=== PATIENT | male | born 1950 | race Two or more races ===

== ENCOUNTER 2024-10-12 06:07 | Inpatient (IN) | payer MEDICARE ==
[2024-10-06 10:01] LABS: Urine Bacteria None Seen /hpf (None Seen)
[2024-10-06 10:21] LABS: Basophils # (auto) 0.1 10 ^3/uL (0-0.2); Eosinophils # (auto) 0.1 10 ^3/uL (0-0.8); Eosinophils % (auto) 1.8 % (0.0-7.0); Hematocrit 42.4 % (41.0-53.0); Hemoglobin 14.2 g/dL (13.5-17.5); Lymphocytes # (auto) 1.7 10 ^3/uL (0.4-5.4); Lymphocytes % (auto) 30.3 % (10.0-50.0); Mean Corpuscular Hemoglobin 33.9 pg (28.0-32.0); Mean Corpuscular Hgb Conc. 33.5 g/dL (32.0-36.0); Mean Corpuscular Volume 101.3 fL (80.0-100.0); Monocytes # (auto) 0.6 10 ^3/uL (0-1.3); Monocytes % (auto) 11.7 % (0.0-12.0); Neutrophils % (auto) 55.2 % (37.0-80.0); Platelet Count (auto) 200 10^3/uL (140-450); Red Blood Cells 4.19 10^6/uL (4.5-5.90); Red Cell Distribution Width 13.3 % (11.8-14.3); White Blood Cell 5.5 10^3/uL (4.4-10.8)
[2024-10-06 10:32] LABS: INR 0.97 (0.9-1.15); Partial Thromboplastin Time 26.5 SEC (24.5-34.5); Prothrombin Time 10.3 sec (9.3-11.8)
[2024-10-06 10:39] LABS: Urine Blood Negative /uL (Negative); Urine Clarity Clear (Clear); Urine Color Light-Yellow (Yellow); Urine Protein, UAD 1+ (Negative); Urine Specific Gravity 1.011 (1.001-1.035); Urine Squamous Epithelial Cell None Seen /hpf (<5); Urine Urobilinogen Normal (Negative); Urine WBC < 1 /HPF (0-3)
[2024-10-06 10:50] LABS: Alanine Aminotransferase 38 U/L (7-40); Alkaline Phosphatase 83 U/L (46-116); Anion Gap 9 (5-15); BUN/Creatinine Ratio 12.4 (10.0-20.0); Blood Urea Nitrogen 12 mg/dL (9-23); Carbon Dioxide 27 mmol/L (20-31); Chloride 101 mmol/L (98-107); Glucose 100 mg/dL (74-106); Potassium 4.4 mmol/L (3.5-5.1); Sodium 137 mmol/L (136-145)
[2024-10-06 10:51] LABS: Aspartate Aminotransferase 34 U/L (13-40)
[2024-10-06 10:58] LABS: Albumin 5.1 g/dL (3.2-4.8); Bilirubin, Total 1.9 mg/dL (0.2-1.0); Calcium 10.8 mg/dL (8.7-10.4)
[2024-10-06 11:59] LABS: Total Protein 7.4 g/dL (5.7-8.2)
[~2024-10-12] VITALS: Ht 177.8 cm; Wt 88.3 kg
[~2024-10-12 06:07] MED LIST: ACET30TA15 PO; ALLO100T PO; AML5T PO; ASPI-543 PO; ATOR40TA52 PO; CHOL200029 PO; FLUT50SP; GABA-1250 PO; HYOS0.1289 PO; IPRAAER6 IN; METO25TA93 PO; VALS320T PO
[2024-10-12] MEDS ORDERED: fentaNYL CITRATE 5 ML ONE (06:52)
[2024-10-12] MEDS ORDERED: fentaNYL CITRATE 100 MCG/2 ML VL ONE ×2 (06:52→09:57)
[2024-10-12] MEDS ORDERED: PROPOFOL 10 MG/ML 20 ML IV ONE ×2 (06:53→09:54)
[2024-10-12] MEDS ORDERED: LIDOCAINE 1% INJ PF 5ML AMP ONE (07:00)
--- NOTE | 2024-10-12 08:09 | DVHHP2 ---
Admitting Diagnosis: lumbar spinal stenosis with severe neurogenic claudication History of Present Illness Home Meds Reported Medications Aspirin (Aspir-Low) 81 Mg Tab, 81 MG PO DAILY for 30 Days, MG 10/09/24 Metoprolol Succinate (Metoprolol Succinate Er) 25 Mg Tab, 1 TAB PO DAILY, #30 TAB 5 Refills 10/09/24 Amlodipine Besylate (NORVASC TABLET) 5 Mg Tb, 1 TAB PO QPM, #30 TAB 5 Refills 10/09/24 Atorvastatin Calcium (ATORVASTATIN CALCIUM) 40 Mg Tab, 1 TAB PO QPM, #30 TAB 5 Refills 10/09/24 Acetaminophen W/ Codeine (Codeine/Acetaminophen) 1 Tab Tab, 1 TAB PO EVERY 72 HOURS PRN for ARTHRITIS PAIN, TAB 05/27/22 Hyoscyamine Sulfate (HYOSCYAMINE SULFATE ODT) 0.125 Mg Tab, 0.125 MG PO DAILYP PRN for DIVERTICULITIS ABD. PAIN, TAB 05/27/22 Ipratropium-Albuterol (COMBIVENT RESPIMAT) Respimat Aer, 1 IN PRN for SOB, AER 05/27/22 Fluticasone Propionate (Nasal) (Fluticasone Propionate) 50 Mcg/Act Spr, 50 MCG NA DAILYP PRN for ASTHMA, SPR 05/27/22 Gabapentin (Gabapentin) 300 Mg Cap, 300 MG PO DAILY for NEUROPATHY, MG 05/27/22 Cholecalciferol (VITAMIN D3) 2,000 Unit Chw, 2000 UNIT PO DAILY for SUPPLEMENT, TAB.CHEW 05/27/22 Allopurinol (Allopurinol) 100 Mg Tab, 100 MG PO DAILY for GOUT, MG 05/27/22 Valsartan (Diovan) 320 Mg Tab, 1 TAB PO DAILY for HTN, #90 TAB 1 Refill 05/27/22 Discontinued Reported Medications Atorvastatin Calcium (ATORVASTATIN CALCIUM) 10 Mg Tab, 1 TAB PO DAILY for HYPERLIPIDEMIA, #30 TAB 5 Refills 05/27/22 Timing/Duration of Back Pain: Getting worse Quality of Back Pain: Dullness, Fullness, Sharpness Back Pain Location: Lumbar spine Back Pain Radiation: Thigh area Method of Injury/Prior Factors: Unknown Review of Systems Constitutional: No symptom reported Ears, Nose, & Throat: No symptom reported Eyes: No symptom reported Pulmonary/Respiratory: No symptom reported Cardiovascular: No symptom reported Gastrointestinal: No symptom reported Genitourinary: No symptom reported Musculoskeletal: Leg pain, Foot pain, Muscle pain, Muscle atrophy Skin: No symptom reported Psychiatric: No symptom reported Endocrine: No symptom reported Hemotologic/Lymphatic: No symptom reported H&P Exam Vital Signs Vital Signs Date Time Temp Pulse Resp B/P (MAP) Pulse Ox O2 Delivery O2 Flow Rate FiO2 10/12/24 06:17 98.3 65 18 150/87 (108) 95 98.3 General Appeara: Well developed, Well nourished, Normal Appearance Head Exam: Normal inspection Neck Exam: Normal inspection, Non-tender, Normal alignment Eye Exam: bilateral eye Normal inspection, bilateral eye PERRL, bilateral eye EOMI Ear Exam: bilateral ear Auricle normal, bilateral ear Canal normal, bilateral ear TM normal Nasal Exam: Normal inspection Mouth: Normal Inspection Pulmonary/Respiratory: Normal inspection, Normal breath sounds, Chest non- tender, Lungs clear Cardiovascular/Chest: Normal inspection, Regular rate, Normal Rhythm Abdominal Exam: Normal bowel sounds, Soft, No tenderness, No hepatospenomegaly, No masses Rectal Exam: Deferred Back Exam: Muscle spasm, Vertebral tenderness Pelvic Exam: Not done Male Genital Exam: Not done Shoulder Exam: Normal inspection, Non-tender, Normal ROM Elbow/Forearm Exam: Normal inspection, Non-tender, Normal ROM Wrist Exam: Normal inspection, Non-tender, Normal ROM Hand Exam: Normal inspection, Non-tender, Normal ROM Hip exam: Normal inspection, Non-tender, Normal range of motion Legs: bilateral leg non-tender, bilateral leg normal inspection, bilateral leg normal range of motion, bilateral leg no evidence of injury Knees: bilateral knee non-tender, bilateral knee normal inspection, bilateral knee normal range of motion, bilateral knee no evidence of injury Ankle Exam: bilateral ankle Normal inspection, bilateral ankle Non-tender, bilateral ankle Normal range of motion, bilateral ankle No evidence of injury Foot: bilateral foot non-tender, bilateral foot normal inspection, bilateral foot normal range of motion, bilateral foot no evidence of injury Tendon/ Neuro: Motor deficit, Sensory deficit [employer]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0 fL Mean Corpuscular Hemoglobin 33.9 H 28.0-32.0 pg Mean Corpuscular Hemoglobin Concent 33.5 32.0-36.0 g/dL Red Cell Distribution Width 13.3 11.8-14.3 % Platelet Count 200 140-450 10^3/uL Mean Platelet Volume 6.8 L 6.9-10.8 fL Neutrophils (%) (Auto) 55.2 37.0-80.0 % Lymphocytes (%) (Auto) 30.3 10.0-50.0 % Monocytes (%) (Auto) 11.7 0.0-12.0 % Eosinophils (%) (Auto) 1.8 0.0-7.0 % Basophils (%) (Auto) 1.0 0.0-2.0 % Neutrophils # (Auto) 3.0 1.6-8.6 10 ^3/uL Lymphocytes # (Auto) 1.7 0.4-5.4 10 ^3/uL Monocytes # (Auto) 0.6 0-1.3 10 ^3/uL Eosinophils # (Auto) 0.1 0-0.8 10 ^3/uL Basophils # (Auto) 0.1 0-0.2 10 ^3/uL Nucleated Red Blood Cells 0.0 % Prothrombin Time 10.3 9.3-11.8 sec Prothrombin Time INR 0.97 0.9-1.15 Activated Partial Thromboplast Time 26.5 24.5-34.5 SEC Urine Color Light-yellow Yellow Urine Clarity Clear Clear Urine pH 6.0 5.0-9.0 Urine Specific [place] 1.011 1.001-1.035 Urine Protein 1+ H Negative Urine Ketones Negative Negative Urine Blood Negative Negative /uL Urine Nitrite Negative Negative Urine Bilirubin Negative Negative Urine Urobilinogen Normal Negative mg/dL Urine Leukocyte Esterase Negative Negative /uL Urine RBC None seen 0 - 3 /hpf Urine Microscopic WBC < 1 0-3 /HPF Urine Squamous Epithelial Cells None seen <5 /hpf Urine Bacteria None seen None Seen /hpf Urine Glucose Normal Normal mg/dL Sodium Level 137 136-145 mmol/L Potassium Level 4.4 3.5-5.1 mmol/L Chloride Level 101 98-107 mmol/L Carbon Dioxide Level 27 20-31 mmol/L Anion Gap 9 5-15 Blood Urea Nitrogen 12 9-23 mg/dL Creatinine 0.97 0.700-1.30 mg/dL Glomerular Filtration Rate Calc 81 >90 mL/min BUN/Creatinine Ratio 12.4 10.0-20.0 Serum Glucose 100 74-106 mg/dL Calcium Level 10.8 H 8.7-10.4 mg/dL Total Bilirubin 1.9 H 0.2-1.0 mg/dL Aspartate Amino Transferase (AST) 34 13-40 U/L Alanine Aminotransferase (ALT) 38 7-40 U/L Alkaline Phosphatase 83 46-116 U/L Total Protein 7.4 5.7-8.2 g/dL Albumin 5.1 H 3.2-4.8 g/dL Assessment/Plan Primary Diagnosis lumbar spinal stenosis with neurogenic claudication Plan admit for elective lumbar spine surgery Plan discussed with: Patient ALVARO CULVER MD Oct 12, 2024 08:09
[2024-10-12] MEDS ORDERED: NITROGLYCERIN 0.4 MG SL TAB SL PRN (08:45)
[2024-10-12] MEDS ORDERED: MORPHINE SULFATE INJ 2 MG/ml SYRG IV PRN (08:45)
[2024-10-12] MEDS ORDERED: ACETAMINOPHEN 325 MG TAB PO PRN (08:45)
[2024-10-12] MEDS ORDERED: SUGAMMADEX 200mg/2ml Vial (100MG/ML) IV ONE (09:09)
[2024-10-12] MEDS ORDERED: ePHEDrine SULFATE 50 MG/ML AMP ONE (09:13)
[2024-10-12 11:08] VITALS: PULSE 75; RESP 12; O2SAT 94
--- NOTE | 2024-10-12 11:10 | DVHOP2 ---
Operative Report - 2 Report Details Date: 10/12/24 Preop Diagnosis: Lumbar spondylolisthesis and spinal stenosis Postop Diagnosis: same as pre op Surgeon: Devon Boucher MD Anesthesiologist: adriano Anesthesia: General Consent: The patient was informed of the risks and benefits of the procedure. These include but are not limited to complications of anesthesia, postoperative infection, incomplete relief of symptoms, recurrence of symptoms, damage to blood vessels, nerves and tendons, deep venous thrombosis, pulmonary embolism and possible need for repeat surgery in the future. Name of Procedure Performed see detailed Procedure Details Procedure Details: Pre-op Diagnosis: Lumbar Degenerative Disk Disease and Lumbar Spinal Stenosis due to massive L5/S1 disc herniation causing Incapacitating back pain, radiculopathy with L5/S1 spondyloisthesis and progressive neurologic deficit Post-op Diagnosis: Lumbar Degenerative Disk Disease and Lumbar Spinal Stenosis due to massive L5/S1 disc herniation causing Incapacitating back pain, radiculopathy woth L5/S1 spondylolisthesis and progressive neurologic deficit Procedure: Lumbar 5 laminectomy with Lumbar 5 foraminotomies and facetectomies along with a L5/S1 discectomy to decompress central canal and Lumbar 5 nerve roots Bilateral Sacral 1 Laminotomies/Foraminotomies/Facetectomies to decompress the central canal and Bilateral Sacral 1 nerve Roots Lumbar 5 to sacral 1 posterior spinal interbody fusion with PEEK cage Lumbar 5 to sacral 1 posterior spinal instrumentation with Pedicle screws - xtant spine Local Bone Autograft For Fusion Allograft Bone Substitute (Bacterin) to augment Fusion Use of Demineralized Bone Matrix to Augment Fusion Microscope For Microdissection Surgeon: Devon Boucher MD Assist: none Anesthesia: General Fluids and EBL: See anesthesia note Patient was seen in the Pre Anesthesia Care Unit (PACU) and the operative site was initialed by me. All questions were answered to the patients satisfaction and chart reviewed. The patient was taken to the operative room where pre- operative antibiotics were given 30 minutes prior to incision. General anesthesia was induced and neuro-monitoring leads placed. Novoa catheter was placed. The patient was turned prone onto the [facility] spinal table. While positioning, I made sure that the belly was free to allow proper expansion of the lungs. The hips were extended and all bony prominences padded. The shoulders were abducted 80 degree and the elbows flexed 100 degrees with no tension on the brachial plexus. I check the foot arterial pulses and they were palpable. The patient was prepped and draped and time out was taken at this time per usual protocol. At this time, the C-arm fluoroscope was brought in and was used to crystal the incision borders proximally and distally. Using a Number 10 Blade, an incision was made extending it proximally and distally per C arm crystal from the posterior spinous process of lumbar 5 to sacral 1 , down to the lumbo- dorsal fascia. All bleeding was controlled with electrocautery. Self-retaining retractors were placed. Electrocautery was then used to take down the lumbo- dorsal fascia, to free the muscle off the bone bilaterally. A Wilfredo retractor was placed over the posterior spinous process proximally and a lateral C-arm fluoroscope image was taken to insure we were at the correct level. Next, using bovie electro cautery, The deep fascia laterally to the facet joints was removed to expose the transverse processes of lumbar 5, sacral 1 while taking care to avoid injuring the facet capsule at the proximal end of the incision. Next, the microscope was bought in for visualization and using a Luxell rongeur, the posterior spinous process of lumbar 5 and sacral 1 were removed and the bone was saved for use as local autograft. I used alternating Kerison 2 mm and 3 mm rongeurs to perform central laminectomies of lumbar pained and bilateral laminotomies/foraminotomies/facetectomies of sacral 1 to decompress the central canal. Next using alternating Kerison 2mm and 3 mm rongeurs, the superior articular facets of lumbar 5 and sacral 1 were removed bilaterally to decompress the lateral recess (facetectomies) and then extended proximally to decompress the foramen bilaterally (foraminotomies). Next, focus was given to the massive right sided L5/S1 herniated disc and 90 percent of the herniation was removed in one piece. The rest removed when preparing the dis space. I used a ball tipped nerve probed to insure that the respective nerve roots were able to be mobilized 5mm in each direction were unimpeded in the lateral recess and foramen. Next I carefully inspected the dura to make sure no durotomy was visible and it was not. Next I retracted the right sacral 1 nerve medially and used increasing size sage until a 10/28mm PEEEK cage was placed at the L5/S1 level. Next, I covered the exposed dura with gelfoam soaked in thrombin and the microscope was wheeled away from the operative filed. The C-arm fluoroscope was brought in and perfect AP views of the Lumbar 5 and sacral 1 pedicles were obtained. I placed bilateral pedicle screws at these levels by: using a Lenke awl to make a harbor pilot hole, then a ball tip robe to make sure there was no pedicle breach, then a tap to prepare the track and a 6 mm diameter and at lumbar 5 45mm and at sacral 1 35mmm length pedicle screw placed bilaterally. This step to place bilateral pedicle screws was repeated up to the lumbar 5/sacral level. Next, the c-arm fluoroscope took an AP and lateral x-ray to ensure proper placement of the pedicle screws. Next, the neuro-stimulation probe was placed over the tip of each screw and each screw stimulated only after a current greater than 10 mA was delivered to the screw. Next , I took a Midas Alessio Drill to decorticate the transverse process which were exposed and local bone graft, Bacterin allograft bone substitute and Demineralized bone matrix were placed along the inter transverse process intervals bilaterally (the fusion bed). Next a curved lyric sized to fit the pedicle screw interval was placed and secured to each pedicle screw using set screws, The set screws were tightened using a torque screwdriver (set to 10 N*M torque) to secure the lyric to the pedicle screws bilaterally. Final AP and lateral C arm fluoroscopic films were taken at this time. Next a 10 [place] diameter Hemovac drain was laced deep to the lumbo- dorsal fascia. The lumbo-dorsal fascia was closed with interrupted 0-Vicry sutures. The subcutaneous tissue was closed with interrupted 2-0 Vicryl sutures. The skin was closed with 2-0 nylon subcuticular suture. TLSO Brace and bone stimulator to be placed post op. Sterile dressings were placed. The pt. was turned supine onto the stretcher, extubated and taken to the recovery room in stable condition. Additional Notes: [facility] MD Oct 12, 2024 11:10
[2024-10-12] MEDS ORDERED: ACETAMINOPHEN IV 1000 MG/100ML (10MG/ML) IV PRN (11:15)
[2024-10-12] MEDS ORDERED: MEPERIDINE HCL (25 MG/ML) 1ML VIAL IV PRN (11:15)
[2024-10-12] MEDS: HYDROmorphone HCL 2 MG/ML VL/or syr IV PRN (11:36)
[2024-10-12] MEDS: LIDOCAINE W/ EPINEPHRINE 1% 20ML VIAL ONE (12:19)
[2024-10-12] MEDS: TRANEXAMIC ACID 20 ML ONE (12:19)
[2024-10-12] MEDS: ceFAZolin 2 GM/D5W100ml 100 ML IV ONE (12:19)
[2024-10-12] MEDS: SUCCINYLCHOLINE CHLORIDE 20 MG/ML 10ML VIAL IV ONE (12:20)
[2024-10-12] MEDS: CIPROFLOXACIN 400MG/200ML 400 ML IV ONE (12:20)
[2024-10-12] MEDS: DOCUSATE SOD 100 MG CAP PO SCH (12:20)
[2024-10-12 13:28] VITALS: PULSE 96; RESP 16; O2SAT 94
[2024-10-12] MEDS ORDERED: GABA-1250 PO (14:02)
[2024-10-12] MEDS ORDERED: HYOS0.1293 PO (14:02)
[2024-10-12] MEDS ORDERED: ALBU108A5 IN (14:04)
[2024-10-12] MEDS: ONDANSETRON HCL 4 MG/2 ML VIAL IV ONE (14:34)
[2024-10-12] MEDS: ceFAZolin 1GM/50ML 50 ML IV SCH (14:49)
[2024-10-12] MEDS: CYCLOBENZAPRINE HCL 10 MG TAB PO SCH (14:50)
[2024-10-12] MEDS: HYDROcodone-ACET 10/325MG TAB PO PRN (14:51)
[2024-10-12] MEDS: ONDANSETRON HCL 4 MG/2 ML VIAL IV PRN (14:56)
[2024-10-12 15:00] VITALS: BP 145/77; PULSE 63; RESP 18; TEMP 97.5; O2SAT 98
--- NOTE | 2024-10-12 16:11 | DVH ---
C-ARM FLUOROSCOPY: PROCEDURE: l4-s1 decompression FLUOROSCOPY TIME: 1 min 55 sec DAP: 83 mgy FINDINGS: Spot intraoperative C arm radiographs demonstrating l4-s1 decompression. IMPRESSION: Please refer to surgical report for detailed findings.
--- NOTE | 2024-10-12 16:11 | DVH ---
C-ARM FLUOROSCOPY: PROCEDURE: l4-s1 decompression FLUOROSCOPY TIME: 1 min 55 sec DAP: 83 mgy FINDINGS: Spot intraoperative C arm radiographs demonstrating l4-s1 decompression. IMPRESSION: Please refer to surgical report for detailed findings.
[2024-10-12] MEDS: D5W/SOD CHLO 0.9% 1,000 ML IV SCH (16:49)
[2024-10-12 17:00] VITALS: BP 130/78; PULSE 58; RESP 18; TEMP 97.6; O2SAT 97
[2024-10-12] MEDS ORDERED: METOPROLOL SUCCINATE XL 50 MG TAB PO ONE (17:30)
--- NOTE | 2024-10-12 17:39 | DVHINCON2 ---
Date Seen: Oct 12, [address] Boucher Family History: Cerebrovascular accident (CVA) G8 FATHER FH: cancer G8 MOTHER Allergies: Coded Allergies: NO KNOWN ALLERGIES (Unverified , 05/29/22) Home Meds Reported Medications Albuterol Sulfate (Albuterol Sulfate Hfa) 108 Mcg/Act Aer, 108 MCG IN, AER 10/12/24 Gabapentin (Gabapentin) 300 Mg Cap, 300 MG PO BID for 30 Days, MG 10/12/24 Hyoscyamine Sulfate (Hyoscyamine Sulfate) 0.125 Mg Tab, 0.125 MG PO BIDP for 30 Days, MG 10/12/24 Aspirin (Aspir-Low) 81 Mg Tab, 81 MG PO DAILY for 30 Days, MG 10/09/24 Metoprolol Succinate (Metoprolol Succinate Er) 25 Mg Tab, 1 TAB PO DAILY, #30 TAB 5 Refills 10/09/24 Amlodipine Besylate (NORVASC TABLET) 5 Mg Tb, 1 TAB PO QPM, #30 TAB 5 Refills 10/09/24 Atorvastatin Calcium (ATORVASTATIN CALCIUM) 40 Mg Tab, 1 TAB PO QPM, #30 TAB 5 Refills 10/09/24 Acetaminophen W/ Codeine (Codeine/Acetaminophen) 1 Tab Tab, 1 TAB PO EVERY 72 HOURS PRN for ARTHRITIS PAIN, TAB 05/27/22 Fluticasone Propionate (Nasal) (Fluticasone Propionate) 50 Mcg/Act Spr, 50 MCG NA DAILYP PRN for ASTHMA, SPR 05/27/22 Cholecalciferol (VITAMIN D3) 2,000 Unit Chw, 2000 UNIT PO DAILY for SUPPLEMENT, TAB.CHEW 05/27/22 Allopurinol (Allopurinol) 100 Mg Tab, 100 MG PO DAILY for GOUT, MG 05/27/22 Valsartan (Diovan) 320 Mg Tab, 1 TAB PO DAILY for HTN, #90 TAB 1 Refill 05/27/22 Discontinued Reported Medications Hyoscyamine Sulfate (HYOSCYAMINE SULFATE ODT) 0.125 Mg Tab, 0.125 MG PO DAILYP PRN for DIVERTICULITIS ABD. PAIN, TAB 05/27/22 Ipratropium-Albuterol (COMBIVENT RESPIMAT) Respimat Aer, 1 IN PRN for SOB, AER 05/27/22 Gabapentin (Gabapentin) 300 Mg Cap, 300 MG PO DAILY for NEUROPATHY, MG 05/27/22 Atorvastatin Calcium (ATORVASTATIN CALCIUM) 10 Mg Tab, 1 TAB PO DAILY for HYPERLIPIDEMIA, #30 TAB 5 Refills 05/27/22 Current Medications Current Medications Medications (Trade) Dose Ordered Sig/Shakira Route PRN Reason Start Time Stop Time Status Last Admin Dextrose/Sodium Chloride 1,000 ml @ 100 mls/hr Q10H IV 10/12/24 08:45 Ondansetron HCl (Zofran) 4 mg Q4HP PRN IV NAUSEA / VOMITING 10/12/24 08:45 10/12/24 14:56 Acetaminophen (Tylenol Tablet) 650 mg Q6HP PRN PO MILD PAIN (1-3 PAIN SCALE) 10/12/24 08:45 Acetaminophen/ Hydrocodone Bitart (Gruver 10/325MG Tab) 1 tab Q6HP PRN PO MODERATE PAIN (4-6 PAIN SCALE) 10/12/24 08:45 10/12/24 14:51 Morphine Sulfate 1 mg Q4HP PRN IV SEVERE PAIN (7-10 PAIN SCALE) 10/12/24 08:45 Cyclobenzaprine HCl (Flexeril Tablet) 10 mg TID PO 10/12/24 14:00 10/12/24 14:50 Docusate Sodium (Colace Capsule) 100 mg BID PO 10/12/24 10:00 Cefazolin Sodium 50 ml @ 100 mls/hr Q8HR IV 10/12/24 14:00 10/14/24 06:29 10/12/24 14:49 Nitroglycerin (Ntrostat Sublingual) 0.4 mg Q5MINP PRN SL FOR CHEST PAIN 10/12/24 08:45 Morphine Sulfate 2 mg Q30M PRN IV FOR CHEST PAIN 10/12/24 08:45 Acetaminophen (Ofirmev) 1,000 mg [id number] PRN IV PAIN SCALE 1-3 OR TEMP>100.4 10/12/24 11:15 10/12/24 11:18 DC Hydromorphone HCl (Dilaudid Injection) 0.5 mg Q10M PRN IV SEVERE PAIN (7-10 PAIN SCALE) 10/12/24 11:15 10/12/24 11:56 DC 10/12/24 12:05 Meperidine HCl (Demerol Injection) 12.5 mg Q10M PRN IV MODERATE PAIN (4-6 PAIN SCALE) 10/12/24 11:15 10/12/24 11:46 DC Vital Signs Vital Signs Date Time Temp Pulse Resp B/P (MAP) Pulse Ox O2 Delivery O2 Flow Rate FiO2 10/12/24 15:00 97.5 63 18 145/77 (99) 98 97.5 10/12/24 13:28 Nasal Cannula* 3 32 Labs/Diagnostic Data Labs Test 10/06/24 09:55 Range/Units White Blood Count 5.5 4.4-10.8 10^3/uL Red Blood Count 4.19 L 4.5-5.90 10^6/uL Hemoglobin 14.2 13.5-17.5 g/dL Hematocrit 42.4 41.0-53.0 % Mean Corpuscular Volume 101.3 H 80.0-100.0 fL Mean Corpuscular Hemoglobin 33.9 H 28.0-32.0 pg Mean Corpuscular Hemoglobin Concent 33.5 32.0-36.0 g/dL Red Cell Distribution Width 13.3 11.8-14.3 % Platelet Count 200 140-450 10^3/uL Mean Platelet Volume 6.8 L 6.9-10.8 fL Neutrophils (%) (Auto) 55.2 37.0-80.0 % Lymphocytes (%) (Auto) 30.3 10.0-50.0 % Monocytes (%) (Auto) 11.7 0.0-12.0 % Eosinophils (%) (Auto) 1.8 0.0-7.0 % Basophils (%) (Auto) 1.0 0.0-2.0 % Neutrophils # (Auto) 3.0 1.6-8.6 10 ^3/uL Lymphocytes # (Auto) 1.7 0.4-5.4 10 ^3/uL Monocytes # (Auto) 0.6 0-1.3 10 ^3/uL Eosinophils # (Auto) 0.1 0-0.8 10 ^3/uL Basophils # (Auto) 0.1 0-0.2 10 ^3/uL Nucleated Red Blood Cells 0.0 % Prothrombin Time 10.3 9.3-11.8 sec Prothrombin Time INR 0.97 0.9-1.15 Activated Partial Thromboplast Time 26.5 24.5-34.5 SEC Urine Color Light-yellow Yellow Urine Clarity Clear Clear Urine pH 6.0 5.0-9.0 Urine Specific [place] 1.011 1.001-1.035 Urine Protein 1+ H Negative Urine Ketones Negative Negative Urine Blood Negative Negative /uL Urine Nitrite Negative Negative Urine Bilirubin Negative Negative Urine Urobilinogen Normal Negative mg/dL Urine Leukocyte Esterase Negative Negative /uL Urine RBC None seen 0 - 3 /hpf Urine Microscopic WBC < 1 0-3 /HPF Urine Squamous Epithelial Cells None seen <5 /hpf Urine Bacteria None seen None Seen /hpf Urine Glucose Normal Normal mg/dL Sodium Level 137 136-145 mmol/L Potassium Level 4.4 3.5-5.1 mmol/L Chloride Level 101 98-107 mmol/L Carbon Dioxide Level 27 20-31 mmol/L Anion Gap 9 5-15 Blood Urea Nitrogen 12 9-23 mg/dL Creatinine 0.97 0.700-1.30 mg/dL Glomerular Filtration Rate Calc 81 >90 mL/min BUN/Creatinine Ratio 12.4 10.0-20.0 Serum Glucose 100 74-106 mg/dL Calcium Level 10.8 H 8.7-10.4 mg/dL Total Bilirubin 1.9 H 0.2-1.0 mg/dL Aspartate Amino Transferase (AST) 34 13-40 U/L Alanine Aminotransferase (ALT) 38 7-40 U/L Alkaline Phosphatase 83 46-116 U/L Total Protein 7.4 5.7-8.2 g/dL Albumin 5.1 H 3.2-4.8 g/dL Assessment see dictated note Plan discussed with: Patient Date of Service: Oct 12, 2024 Billing Provider: CHIKIS VOGEL MD Common Visit Codes: [id number] INP/OBS CARE (HIGH) CHIKIS VOGEL MD Oct 12, 2024 17:39
--- NOTE | 2024-10-12 17:45 | ECG ---
[facility] Test Date: 2024-10-12 Test Time: 17:44:17 Pat Name: LANCE WHARTON Department: Respiratoy Room: 0250T A Gender: M Mental Health Nurse Practitioner: [email or web address] : 1950 Requested By: CHIKIS VOGEL Order Number: [id number] Reading MD: Coleman Taylor Measurements Intervals [place] Rate: 56 P: -24 FL: 225 QRS: -37 QRSD: 108 T: -6 QT: 444 QTc: 429 Interpretive Statements Sinus rhythm Prolonged FL interval LVH with secondary repolarization abnormality Probable anterior infarct, age indeterminate Baseline wander in lead(s) V2 Electronically Signed On 10-13-2024 13:39:09 PST by Coleman Taylor Please click the below link to view image of tracing.
--- NOTE | 2024-10-12 18:40 | ECG ---
[facility] Test Date: 2024-10-12 Test Time: 17:46:19 Pat Name: LANCE WHARTON Department: Respiratoy Room: 0250T A Gender: M Family Service Assistant: [email or web address] : 1950 Requested By: CHIKIS VOGEL Order Number: [id number] Reading MD: Coleman Taylor Measurements Intervals [place] Rate: 55 P: -34 AR: 217 QRS: -36 QRSD: 108 T: -11 QT: 445 QTc: 426 Interpretive Statements Sinus rhythm Borderline prolonged AR interval LVH with secondary repolarization abnormality Anterior infarct, age indeterminate Electronically Signed On 10-13-2024 13:39:13 PST by Coleman Taylor Please click the below link to view image of tracing.
[2024-10-12 18:53] LABS: Basophils # (auto) 0 10 ^3/uL (0-0.2); Basophils % (auto) 0.4 % (0.0-2.0); Eosinophils # (auto) 0 10 ^3/uL (0-0.8); Hematocrit 39.7 % (41.0-53.0); Hemoglobin 13.4 g/dL (13.5-17.5); Lymphocytes # (auto) 0.6 10 ^3/uL (0.4-5.4); Mean Corpuscular Hemoglobin 34.7 pg (28.0-32.0); Mean Corpuscular Hgb Conc. 33.7 g/dL (32.0-36.0); Mean Corpuscular Volume 102.8 fL (80.0-100.0); Monocytes # (auto) 0.6 10 ^3/uL (0-1.3); Monocytes % (auto) 6.1 % (0.0-12.0); Neutrophils % (auto) 87.5 % (37.0-80.0); Nucleated Red Blood Cells % 0.2 %; Platelet Count (auto) 177 10^3/uL (140-450); Red Blood Cells 3.86 10^6/uL (4.5-5.90); Red Cell Distribution Width 13.1 % (11.8-14.3); White Blood Cell 10.2 10^3/uL (4.4-10.8)
[2024-10-12 19:02] LABS: Chloride 103 mmol/L (98-107); Potassium 4.1 mmol/L (3.5-5.1); Sodium 137 mmol/L (136-145)
[2024-10-12 19:03] LABS: Anion Gap 10 (5-15); Calcium 9.3 mg/dL (8.7-10.4); Carbon Dioxide 24 mmol/L (20-31)
[2024-10-12 19:08] LABS: BUN/Creatinine Ratio 13.2 (10.0-20.0)
[2024-10-12 19:15] LABS: Blood Urea Nitrogen 9 mg/dL (9-23); Glucose 115 mg/dL (74-106); Magnesium 1.4 mg/dL (1.6-2.6)
--- NOTE | 2024-10-12 19:16 | DVHINCON2 ---
DATE OF CONSULTATION: 10/12/2024 INTERNAL MEDICINE CONSULT HISTORY OF PRESENT ILLNESS: The patient is a 74-year-old gentleman, who was admitted after he underwent surgery on the lumbar spine for DJD of the spine. The patient at this time complains of pain in the lower back. No chest pain. No shortness of breath. No nausea or vomiting. REVIEW OF SYSTEMS: Review of rest of systems are otherwise currently negative. PAST MEDICAL HISTORY: Significant for coronary artery disease, status post CABG; history of hypertension; hyperlipidemia; gout. MEDICATIONS: * Allopurinol. * Norvasc. * Aspirin. * Lipitor. * Gabapentin. * Losartan. * Metoprolol. ALLERGIES: No known drug allergies. SOCIAL HISTORY: Denies smoking. Drinks about three port wine shots a day. Lives alone. FAMILY HISTORY: Negative. PHYSICAL EXAMINATION: GENERAL: On exam, the patient is awake, alert. VITAL SIGNS: Temperature of 97.5, pulse of 63 per minute, blood pressure of 140/77. SHEENT: Unremarkable. NECK: There is no JVD, no pedal edema. LUNGS: Equal bilaterally. No added sounds. CARDIOVASCULAR SYSTEM: S1, S2 is regular. ABDOMEN: Soft. There is no organomegaly. NEUROLOGIC: Nonfocal. MUSCULOSKELETAL: There is a dressing at the site of the lumbar spine surgery. ASSESSMENT AND PLAN: * Likely ventricular arrhythmia. The patient will have EKG done and a BMP, and a mag will be checked. A Cardiology consult will be obtained with Dr. Vann. * Coronary artery disease, status post coronary artery bypass graft. An echocardiogram will be obtained. * Hypertension. * Hyperlipidemia. * Gout. * Alcohol use/abuse. * Status post lumbar spine surgery for degenerative joint disease of the spine, for which she will be placed on pain medication and receive physical therapy. MD MIGUELITO Wiley/KERWIN TID: [id number] RECEIPT: [id number]
[2024-10-12 20:00] VITALS: PULSE 60; PULSE 64; RESP 18; O2SAT 94
[2024-10-12 20:56] VITALS: BP 128/64; PULSE 66; RESP 19; TEMP 97.6; O2SAT 94
[2024-10-12] MEDS: GABAPENTIN 300 MG CAP PO SCH (22:04)
[2024-10-12] MEDS: ATORVASTATIN 20 MG TAB PO SCH (22:06)
[2024-10-13] VITALS (10 sets, daily range): BP systolic 113–147; BP diastolic 67–81; PULSE 60–81; RESP 17–20; TEMP 98.1–99.9; O2SAT 95–98
--- NOTE | 2024-10-13 05:47 | DVH ---
EXAM: XR Chest, 1 View CLINICAL INDICATION: cad TECHNIQUE: Frontal view of the chest. COMPARISON: CHEST XRAY 1 VIEW on DOS: 05/29/22, CXR1 on DOS: 05/29/22 FINDINGS: LUNGS AND PLEURAL SPACES: Mild congestive heart failure. No consolidation. No pneumothorax. HEART: Unremarkable. No cardiomegaly. MEDIASTINUM: Unremarkable. Normal mediastinal contour. BONES/JOINTS: Unremarkable. No acute fracture. OTHER FINDINGS: . IMPRESSION: Mild congestive heart failure.
[2024-10-13 07:35] LABS: Basophils # (auto) 0 10 ^3/uL (0-0.2); Basophils % (auto) 0.4 % (0.0-2.0); Eosinophils # (auto) 0.1 10 ^3/uL (0-0.8); Hemoglobin 12.5 g/dL (13.5-17.5); Lymphocytes # (auto) 1.3 10 ^3/uL (0.4-5.4); Neutrophils # (auto) 5.6 10 ^3/uL (1.6-8.6)
--- NOTE | 2024-10-13 07:36 | DVHINCON2 ---
Date of service: Oct 13, 2024 History of Present Illness HPI Patient is a 74 who came for elective laminectomy. Patient has had daily diff laminectomy at the time of evaluation. Cardiology was involved for cardiac aspects of care. Patient is known to our practice from outside and before. Patient does have history of coronary artery disease and has had CABG before. He does also have history of infrequent SVTs. Home Meds Reported Medications Albuterol Sulfate (Albuterol Sulfate Hfa) 108 Mcg/Act Aer, 108 MCG IN, AER 10/12/24 Gabapentin (Gabapentin) 300 Mg Cap, 300 MG PO BID for 30 Days, MG 10/12/24 Hyoscyamine Sulfate (Hyoscyamine Sulfate) 0.125 Mg Tab, 0.125 MG PO BIDP for 30 Days, MG 10/12/24 Aspirin (Aspir-Low) 81 Mg Tab, 81 MG PO DAILY for 30 Days, MG 10/09/24 Metoprolol Succinate (Metoprolol Succinate Er) 25 Mg Tab, 1 TAB PO DAILY, #30 TAB 5 Refills 10/09/24 Amlodipine Besylate (NORVASC TABLET) 5 Mg Tb, 1 TAB PO QPM, #30 TAB 5 Refills 10/09/24 Atorvastatin Calcium (ATORVASTATIN CALCIUM) 40 Mg Tab, 1 TAB PO QPM, #30 TAB 5 Refills 10/09/24 Acetaminophen W/ Codeine (Codeine/Acetaminophen) 1 Tab Tab, 1 TAB PO EVERY 72 HOURS PRN for ARTHRITIS PAIN, TAB 05/27/22 Fluticasone Propionate (Nasal) (Fluticasone Propionate) 50 Mcg/Act Spr, 50 MCG NA DAILYP PRN for ASTHMA, SPR 05/27/22 Cholecalciferol (VITAMIN D3) 2,000 Unit Chw, 2000 UNIT PO DAILY for SUPPLEMENT, TAB.CHEW 05/27/22 Allopurinol (Allopurinol) 100 Mg Tab, 100 MG PO DAILY for GOUT, MG 05/27/22 Valsartan (Diovan) 320 Mg Tab, 1 TAB PO DAILY for HTN, #90 TAB 1 Refill 05/27/22 Discontinued Reported Medications Hyoscyamine Sulfate (HYOSCYAMINE SULFATE ODT) 0.125 Mg Tab, 0.125 MG PO DAILYP PRN for DIVERTICULITIS ABD. PAIN, TAB 05/27/22 Ipratropium-Albuterol (COMBIVENT RESPIMAT) Respimat Aer, 1 IN PRN for SOB, AER 05/27/22 Gabapentin (Gabapentin) 300 Mg Cap, 300 MG PO DAILY for NEUROPATHY, MG 05/27/22 Atorvastatin Calcium (ATORVASTATIN CALCIUM) 10 Mg Tab, 1 TAB PO DAILY for HYPERLIPIDEMIA, #30 TAB 5 Refills 05/27/22 Past Medical History Others Past medical history includes hypertension, hyperlipidemia, prediabetes, obstructive sleep apnea, coronary artery disease, status post CABG, asthma, peripheral artery disease, diverticular disease, degenerative disc disorder, alcoholism, old history of renal cancer and nephrectomy, history of prostate cancer, fatty liver, infrequent SVTs, old history of right ankle tear and also old history of esophageal dilatation. Patient Family History: Cerebrovascular accident (CVA) G8 FATHER FH: cancer G8 MOTHER Smoker: Quit Alocohol: Moderate Drugs: None Review of Systems Cardiovascular: No symptom reported All Other Systems Complains of back pain at the site of surgery Fourteen point review of system was performed. Relevant findings as per above and as per HPI. Otherwise negative. H&P Exam Vital Signs Vital Signs Date Time Temp Pulse Resp B/P (MAP) Pulse Ox O2 Delivery O2 Flow Rate FiO2 10/13/24 05:16 98.1 61 20 121/69 (86) 97 98.1 10/12/24 20:00 Room Air* 0 21 General Appeara: Well developed, Well nourished Head Exam: Normal inspection Eye Exam: bilateral eye PERRL Nasal Exam: Normal inspection Mouth: Normal Inspection Pulmonary/Respiratory: Lungs clear Cardiovascular/Chest: Normal inspection, Systolic murmur Peripheral Pulses: 2+ carotid (R), 2+ carotid (L), 2+ femoral (R), 2+ femoral (L), 2+ dorsalis pedis (R), 2+ dorsalis pedis (L), 2+ Radial (R), 2+ Radial (L) Abdominal Exam: Normal bowel sounds, Soft Neuro/Mental St: Alert, Oriented Appearance: Appropriate appearance Eye contact/ Speech: Cooperative Labs/Xrays Labs Test 10/13/24 07:07 10/12/24 18:28 10/06/24 09:55 Range/Units Eosinophils (%) (Auto) 0.0 0.0-7.0 % Eosinophils # (Auto) 0 0-0.8 10 ^3/uL Basophils # (Auto) 0 0-0.2 10 ^3/uL Nucleated Red Blood Cells 0.2 % Prothrombin Time 10.3 9.3-11.8 sec Prothrombin Time INR 0.97 0.9-1.15 Activated Partial Thromboplast Time 26.5 24.5-34.5 SEC Urine Color Light-yellow Yellow Urine Clarity Clear Clear Urine pH 6.0 5.0-9.0 Urine Specific [place] 1.011 1.001-1.035 Urine Protein 1+ H Negative Urine Ketones Negative Negative Urine Blood Negative Negative /uL Urine Nitrite Negative Negative Urine Bilirubin Negative Negative Urine Urobilinogen Normal Negative mg/dL Urine Leukocyte Esterase Negative Negative /uL Urine RBC None seen 0 - 3 /hpf Urine Microscopic WBC < 1 0-3 /HPF Urine Squamous Epithelial Cells None seen <5 /hpf Urine Bacteria None seen None Seen /hpf Urine Glucose Normal Normal mg/dL Assessment/Plan Plan Patient is a 74 who came for elective laminectomy. Patient has had daily diff laminectomy at the time of evaluation. Cardiology was involved for cardiac aspects of care. Patient is known to our practice from outside and before. Elvia rai does have history of coronary artery disease and has had CABG before. He does also have history of infrequent SVTs. Not in acute distress. Lying flat in bed. No JVD. Mucosa is pink and wet. No carotid bruit. No goiter. Lungs are clear to auscultation. Cardiac: Regular, no thrill/gallop. Abdomen is soft. Bowel sound is positive. There is no gross mass/hepatomegaly. There is no peripheral edema. Past medical history includes hypertension, hyperlipidemia, prediabetes, obstructive sleep apnea, coronary artery disease, status post CABG, asthma, peripheral artery disease, diverticular disease, degenerative disc disorder, alcoholism, old history of renal cancer and nephrectomy, history of prostate cancer, fatty liver, infrequent SVTs, old history of right ankle tear and also old history of esophageal dilatation. Echocardiogram of July 17, 2024 (performed in the office) revealed ejection fraction of 55-60%, mild left ventricular hypertrophy, mild biatrial enlargement, trace AI/MR/PI, mild TR, mitral annular calcification and right ventricular systolic pressure of less than 35 mm Hg Creatinine: 0.97-0.66 Potassium: 4.4-4.1 Chest x-ray revealed: IMPRESSION: Mild congestive heart failure. EKG reveals sinus rhythm Tele reveals sinus rhythm Patient is a 74-year-old gentleman who came for elective laminectomy. He is post laminectomy. Cardiac-bui, the patient has history of coronary artery disease and has had CABG before. Infrequent SVTs. It is of note the patient does have history of alcohol abuse and its withdrawal should be avoided in the hospital DDD Post laminectomy Peripheral artery disease Coronary artery disease Status post CABG Obstructive sleep apnea Alcohol abuse Cardiac suggestion for management: Managed on telemetry Follow-up electrolytes and kidney function tests and correct abnormalities Continue aspirin DVT prophylaxis Prevent alcohol withdrawal Further evaluation and management depends on the above and clinical course Thank you for consultation A total of 75 minutes was spent reviewing the patient record, examining the patient, making a diagnostic and therapeutic plan, discussing this plan with medical personnel, following up on diagnostic studies and following the patient for clinical stability excluding any and all procedures. At least 50% of this time was spent in direct, [id number] contact. Thank you for allowing me to participate in this patient's care. Further recommendations will depend on patient's clinical course. Please do not hesitate to contact me if you have any questions or concerns. This medical document was created using electronic medical record system with [employer] computerized dictation system. Although this document has been carefully reviewed, there may still be some phonetic and typographical errors. These areas are purely typographical due to the imperfection of the software programs, and do not reflect any compromise in the patient's medical care. Plan discussed with: Patient, Other (nurse) GADIEL COLIN MD Oct 13, 2024 07:36
[2024-10-13 07:37] LABS: Eosinophils % (auto) 1.3 % (0.0-7.0); Hematocrit 36.4 % (41.0-53.0); Lymphocytes % (auto) 16.6 % (10.0-50.0); Mean Corpuscular Hemoglobin 35.2 pg (28.0-32.0); Mean Corpuscular Hgb Conc. 34.3 g/dL (32.0-36.0); Mean Corpuscular Volume 102.5 fL (80.0-100.0); Monocytes % (auto) 11.9 % (0.0-12.0); Neutrophils % (auto) 69.8 % (37.0-80.0); Platelet Count (auto) 173 10^3/uL (140-450); Red Blood Cells 3.55 10^6/uL (4.5-5.90); White Blood Cell 8.1 10^3/uL (4.4-10.8)
[2024-10-13 07:48] LABS: Alanine Aminotransferase 30 U/L (7-40); Albumin 4.2 g/dL (3.2-4.8); Alkaline Phosphatase 68 U/L (46-116); Anion Gap 4 (5-15); Aspartate Aminotransferase 38 U/L (13-40); BUN/Creatinine Ratio 10.8 (10.0-20.0); Calcium 9.1 mg/dL (8.7-10.4); Carbon Dioxide 29 mmol/L (20-31); Chloride 103 mmol/L (98-107); Potassium 4.4 mmol/L (3.5-5.1); Sodium 136 mmol/L (136-145); Total Protein 6.2 g/dL (5.7-8.2)
[2024-10-13 07:49] LABS: Bilirubin, Total 2.1 mg/dL (0.2-1.0); Blood Urea Nitrogen 9 mg/dL (9-23); Glucose 115 mg/dL (74-106); Magnesium 1.4 mg/dL (1.6-2.6)
[2024-10-13] MEDS: VALSARTAN 80 MG TAB PO SCH (09:26)
[2024-10-13] MEDS: ALLOPURINOL 100 MG TAB PO SCH (09:26)
[2024-10-13] MEDS: METOPROLOL SUCCINATE XL 50 MG TAB PO SCH (09:27)
--- NOTE | 2024-10-13 14:23 | DVHSR ---
APPROVED REPORT EXAM: Two-dimensional and M-mode echocardiogram with Doppler and color Doppler. Blood Pressure: 121/69 mmHg INDICATION CAD RISK FACTORS Height: 5'10", Weight: 201 DIMENSIONS LVDd4.5 (3.8-5.7cm)LA (2D)4.4 (1.9-4.0cm)Aortic Root (2.0-3.7cm) LVDs3.4 (2.5-4.0cm)LA (MM) (1.9-4.0cm)Aortic Cusp Exc (1.5-2.0cm) EF (%) 50.0 (55-70%)Rt. Atrium4.3 (1.9-4.0cm)Asc. Aorta cm IVSd0.7 (0.7-1.1cm)RV (D) (1.8-2.4cm) Mitral Valve MitralMitral Stenosis E wave0.55m/sMV Mean GR.mmHg A wave0.76m/sMV Peak GR.mmHg E/A ratio0.72D MVAcm2 DECEL [id number] 1/2 Tim[place] Aortic Valve Aortic ValveAortic Stenosis V10.93m/Clay Mean GR.4mmHg V21.30m/Clay Peak GR.7mmHg LVOT Diameter2.3 (1.8-2.4cm)Doppler AVA2.97cm2 Other Information Quality : Technically LimitedRhythm : Technically limited study due to body habitus. Conclusion Left ventricle: Borderline concentric left ventricular hypertrophy was seen. LVEF was 54%. Paradox ical septal motion was seen. Right ventricle is normal-sized with normal systolic function. Both atria were normal-sized. Aortic valve was not well visualized. There was no aortic insufficiency/stenosis. There was trace m itral regurgitation. There was no tricuspid regurgitation. Pulmonary valve was not well visualized. As there was no good tricuspid regurgitation jet, right ventricular systolic pressure could not be es timated. IVC was normal-sized with normal respiratory variation. There was no echocardiographic margot dence for pulmonary hypertension. There was no pericardial effusion.
--- NOTE | 2024-10-13 16:37 | DVHPN2 ---
Subjective Feels okay/better. He drinks daily around three beers and two three shots of liquor hours Reviewed: Care Plan, H&P, Labs, Medications, Previous Orders, Radiology, Other (Consultants) Changes from previous H/P or p: No Changes Objective Vitals Vital Signs Date Time Temp Pulse Resp B/P (MAP) Pulse Ox O2 Delivery O2 Flow Rate FiO2 10/13/24 13:00 99.9 71 18 113/71 (85) 97 99.9 10/13/24 08:20 Room Air* 0 21 Intake/Output Intake and Output 10/13/24 07:00 Intake Total 1120 ml Output Total 3930 ml Balance -2810 ml Intake Oral 1020 ml IV Total 100 ml Output Urine Total 3300 ml Drainage Total 630 ml General Appearance: Alert, Oriented X3, Cooperative, No acute distress, Other (Hard of hearing) HEENT: Atraumatic Lungs: Clear to auscultation Cardiovascular: Regular rate Extremities: Other (Generalized weakness bilateral lower extremities) Medications Current Medications Medications Dose Ordered Sig/Shakira Route Start Time Stop Time Status Last Admin Dose Admin Ondansetron HCl 4 mg Q4HP PRN IV 10/12/24 08:45 10/12/24 14:56 4 MG Acetaminophen 650 mg Q6HP PRN PO 10/12/24 08:45 Acetaminophen/ Hydrocodone Bitart 1 tab Q6HP PRN PO 10/12/24 08:45 10/13/24 11:13 1 TAB Morphine Sulfate 1 mg Q4HP PRN IV 10/12/24 08:45 Cyclobenzaprine HCl 10 mg TID PO 10/12/24 14:00 10/13/24 13:13 10 MG Docusate Sodium 100 mg BID PO 10/12/24 10:00 10/13/24 09:27 100 MG Cefazolin Sodium 50 ml @ 100 mls/hr Q8HR IV 10/12/24 14:00 10/14/24 06:29 10/13/24 13:14 100 MLS/HR Nitroglycerin 0.4 mg Q5MINP PRN SL 10/12/24 08:45 Morphine Sulfate 2 mg Q30M PRN IV 10/12/24 08:45 Allopurinol 100 mg DAILY PO 10/13/24 10:00 10/13/24 09:26 100 MG Atorvastatin Calcium 40 mg HS PO 10/12/24 22:00 10/12/24 22:06 40 MG Metoprolol Succinate 25 mg DAILY PO 10/13/24 10:00 10/13/24 09:27 25 MG Gabapentin 300 mg BID PO 10/12/24 22:00 10/13/24 09:26 300 MG Valsartan 80 mg DAILY PO 10/13/24 10:00 10/13/24 09:26 80 MG Chlordiazepoxide HCl 25 mg Q4HR PRN PO 10/13/24 14:30 Laboratory Results Laboratory Tests 10/13/24 07:07 Chemistry Test 10/12/24 18:28 10/13/24 07:07 Calcium Level 9.3 mg/dL (8.7-10.4) 9.1 mg/dL (8.7-10.4) Magnesium Level 1.4 mg/dL (1.6-2.6) L 1.4 mg/dL (1.6-2.6) L Albumin 4.2 g/dL (3.2-4.8) Total Protein 6.2 g/dL (5.7-8.2) LFT Test 10/13/24 07:07 Alanine Aminotransferase (ALT) 30 U/L (7-40) Alkaline Phosphatase 68 U/L (46-116) Aspartate Amino Transferase (AST) 38 U/L (13-40) Total Bilirubin 2.1 mg/dL (0.2-1.0) H Urinalysis Test 10/06/24 09:55 Urine Color Light-yellow (Yellow) Urine Clarity Clear (Clear) Urine pH 6.0 (5.0-9.0) Urine Specific [place] 1.011 (1.001-1.035) Urine Protein 1+ (Negative) H Urine Ketones Negative (Negative) Urine Blood Negative /uL (Negative) Urine Nitrite Negative (Negative) Urine Bilirubin Negative (Negative) Urine Urobilinogen Normal mg/dL (Negative) Urine Leukocyte Esterase Negative /uL (Negative) Urine RBC None seen /hpf (0 - 3) Urine Microscopic WBC < 1 /HPF (0-3) Urine Squamous Epithelial Cells None seen /hpf (<5) Urine Bacteria None seen /hpf (None Seen) Urine Glucose Normal mg/dL (Normal) Assessment/Plan Assessment/Plan Status post lumbar surgery/degenerative joint disease History of SVT Alcoholism/watch for DT Coronary artery disease history of CABG Peripheral artery disease Sleep apnea Hypertension Dyslipidemia Gout Mild anemia Plan: We will add Librium as needed for possible DT Plan discussed with: Patient, Other (Nursing) My Orders Orders - ADAM LINN MD Procedure Category Date Status Time Chlordiazepoxide Hcl PHA 10/13/24 In Process Capsule (Librium Ca 14:30 Date of Service: Oct 13, 2024 Billing Provider: ADAM LINN MD Common Visit Codes: [id number] INP/OBS CARE(HIGH) ADAM LINN MD Oct 13, 2024 16:37
[2024-10-14] VITALS (8 sets, daily range): BP systolic 131–160; BP diastolic 79–94; PULSE 81–107; RESP 18–20; TEMP 98.4–101.8; O2SAT 93–100
[2024-10-14] MEDS: MORPHINE SULFATE INJ 2 MG/ml SYRG IV PRN (05:08)
--- NOTE | 2024-10-14 06:00 | DVHPN2 ---
Progress Note - Surgical Date Seen: Oct 14, 2024 Post op day Post op day: 2 Subjective Patient reports: No new complaints, Feels better (Improvement in preoperative symptoms), Other (Patient requiring medication adjustment) Review of Systems: HEENT:Normal, CVS:Abnormal, RESPIRATORY:Normal, GI:Normal, :Normal, MSK:Abnormal, NEURO:Normal ( Leg pain, Foot pain, Muscle pain, Muscle atrophy) Objective Vital signs Vital Sign Date Time Temp Pulse Resp B/P (MAP) Pulse Ox O2 Delivery O2 Flow Rate FiO2 10/14/24 05:08 87 19 131/87 10/14/24 05:00 100.5 95 100.5 10/13/24 20:26 Room Air* 0 21 Total Intake and Output 10/13/24 10/13/24 10/14/24 15:00 23:00 07:00 Intake Total 920 ml 800 ml Output Total 1150 ml 1100 ml Balance -230 ml -300 ml Medications Current Medications Medications Dose Ordered Sig/Shakira Route Start Time Stop Time Status Last Admin Dose Admin Ondansetron HCl 4 mg Q4HP PRN IV 10/12/24 08:45 10/12/24 14:56 4 MG Acetaminophen 650 mg Q6HP PRN PO 10/12/24 08:45 Acetaminophen/ Hydrocodone Bitart 1 tab Q6HP PRN PO 10/12/24 08:45 10/14/24 00:23 1 TAB Morphine Sulfate 1 mg Q4HP PRN IV 10/12/24 08:45 10/14/24 05:08 1 MG Cyclobenzaprine HCl 10 mg TID PO 10/12/24 14:00 10/14/24 05:09 10 MG Docusate Sodium 100 mg BID PO 10/12/24 10:00 10/13/24 22:27 100 MG Cefazolin Sodium 50 ml @ 100 mls/hr Q8HR IV 10/12/24 14:00 10/14/24 06:29 10/14/24 05:09 100 MLS/HR Nitroglycerin 0.4 mg Q5MINP PRN SL 10/12/24 08:45 Morphine Sulfate 2 mg Q30M PRN IV 10/12/24 08:45 Allopurinol 100 mg DAILY PO 10/13/24 10:00 10/13/24 09:26 100 MG Atorvastatin Calcium 40 mg HS PO 10/12/24 22:00 10/13/24 22:27 40 MG Metoprolol Succinate 25 mg DAILY PO 10/13/24 10:00 10/13/24 09:27 25 MG Gabapentin 300 mg BID PO 10/12/24 22:00 10/13/24 22:27 300 MG Valsartan 80 mg DAILY PO 10/13/24 10:00 10/13/24 09:26 80 MG Chlordiazepoxide HCl 25 mg Q4HR PRN PO 10/13/24 14:30 Laboratory Laboratory Tests 10/13/24 07:07 Test 10/13/24 07:07 Range/Units Serum Glucose 115 H 74-106 mg/dL Examination: GENERAL:Normal, HEENT:Normal, NECK:Normal, LUNGS:Normal, CVS:Normal, ABDOMEN:Normal, MSK:Normal, SKIN:Normal (progressing as expected), NEURO:Normal, :Normal Problem List/Assessment/Plan Problems: (1) Postoperative pain after spinal surgery (2) Muscle spasm of back Assessment and Plan POD # 2. DRAIN 1 WITH 20ML OF OUTPUT DRAIN #2 WITH 50 ML OF OUTPUT both drains DC today patient tolerated well pt has worked with PT- patient appears that he will be needing acute rehab services due to weakness pain meds adjusted to q 4 hours PRN Dx: Lumbar stenosis, postoperative pain, lumbar muscle spasms -Disposition: -Pending -Discharge RX: Pending -Follow up appointment: with Dr Boucher on two weeks postoperatively [phone] [id number] [facility] [address] [place] [id number] -Pain: - IV pain meds post op day 1, with PO supplementation, goal is to progress weaning off IV medications and control pain with PO only. morphine 1mg q 4 hours (PAIN 7-10) - P.O. analgesics:Tylenol 650MG (PAIN 1-3) [place] 10/325 mg (PAIN 4-6) - Muscle relaxers scheduled administration. This is a beneficial medications for the incisional pain as it is mostly related to muscle spasms. Flexeril 10 mg TID - Cepacol throat lozenges as needed for sore throat -Antibiotics Operative recommendations: -Postoperative dose:Completed -DVT PPX: -Hold all chemical DVT/ blood thinners for 14 days postoperatively -use mechanical DVT PPX such as SCD's, ambulation -Activity: -Pending PT evaluation and patients progression -Sit at side of bed for meals -Goal: Ambulate independently and safely (may use assistive devices if needed) -Medical Therapy goals: -Afebrile- Patient may develop a expected post operative fever by day 2-3, this may not be accompanied with a elevation in WBC. if fever develops: Acetaminophen for fever. Albuterol nebulizer Tx every 12 hours for 24 hours to facilitate adequate lung expansion and prevent development of atelectasis. -Euglycemic: bloods sugars under 130mmol/L for optimal healing -Normotensive: Avoid events of hypertension. This helps to keep post operative healing intact and avoids destabilization of beneficial hemostatic coagulation. -Lumbar: -If patient is comfortable encouraged the patient to lay on their side to facilitate wound healing -Drains: -Hemovac drains: These will be to full compression unless otherwise ordered. Please record and document output AND characteristic of fluid present independently EVERY 6 hours more often as needed. if there in no output indicate this by documenting 0ml. If output is greater than 100 ml in one hour of bela blood call provider. These drains will be removed once the drainage is at a acceptable level (generally less than 100ml in 24 hours) -Rima dressing: This will stay in place and will be removed at the patients follow up visit. Nursing is to assess the seal and power source. The seal should be intact and the power source should have a green flashing light indicating it is functioning well. Batteries can last up to 14 days. If a leak develops the dressing edges can be reinforced with a Tegaderm dressing to reestablish intact seal. The Rima dressing is NOT a wound vac. This does not get changed, it does not need home health management. -Record output independently, drain 1. Is a deep drain and drain 2. Is a superficial drain. Wound drainage is described by type, color, amount, and odor. Drainage can be 1 Serous: Clear and thin, may be present in healing healthy wound. 2 Serosanguineous containing blood may also be present and healthy healing wound 3. Sanguinous primarily blood 4. Purulent this is thick, white, and pus like. It may be indicated to give of a infection and should constitute a call to the provider immediately with the plan that the sample should be cultured. -Dressings Take care not to disrupt the RIMA dressing seal. If there is a break in the seal it can be trouble shot with a Tegaderm dressing. -Dressing to Hemovac drains may be changed once the drains have been removed by the provider. -Bowel management: -Colace 100mg bid -Diet: -Clear liquid diet and advance as patient tolerates within dietary limitations ( example: diabetic, Cardiac) -Incentive Spirometer: -10 x hour while awake, RN please educate and observe repeat demonstration, have IS at bedside POD #1 -X-rays: - none indicated at this time -Consults: -Physical Therapy evaluation, treatment recommendations, and discharge recommendations Call with questions Keya Dumas ACNP- Orthopaedic Spine Surgery nurse practitioner For Dr Monster Boucher Patient was examined, chart reviewed, labs evaluated, and diagnostic studies and findings analyzed. Case was discussed with Dr. Devon Boucher who formulated the plan of care. This medical document was created using an electronic medical record system with [employer] dictation system. Although this document has been carefully reviewed, there might still be some phonetic and typographical errors. These areas are purely typographical due to imperfections of the software programs, and do not reflect any compromise in the patient's medical care. Plan discussed with Plan discussed with: Patient, Other (Hetal x [id number]) Visit Coding Surgery Date of Service if different f: Oct 14, 2024 Billing Provider: MARISOL DUMAS NP Surgery Visit Codes: NOT BILLABLE MARISOL DUMAS NP Oct 14, 2024 06:00
[2024-10-14] MEDS: HYDROcodone-ACET 10/325MG TAB PO PRN (06:33)
--- NOTE | 2024-10-14 17:05 | DVHPN2 ---
Subjective No complaints today Reviewed: Care Plan, H&P, Labs, Medications, Previous Orders, Radiology, Other (Consultants) Changes from previous H/P or p: No Changes Objective Vitals Vital Signs Date Time Temp Pulse Resp B/P (MAP) Pulse Ox O2 Delivery O2 Flow Rate FiO2 10/14/24 13:00 98.4 90 20 160/84 (109) 94 98.4 10/14/24 08:00 Room Air* 0 21 Intake/Output Intake and Output 10/14/24 07:00 Intake Total 1770 ml Output Total 2620 ml Balance -850 ml Intake Oral 1620 ml IV Total 150 ml Output Urine Total 2400 ml Drainage Total 220 ml General Appearance: Alert, Oriented X3, Cooperative, No acute distress, Other (Hard of hearing) HEENT: Atraumatic Lungs: Clear to auscultation Cardiovascular: Regular rate Extremities: Other (Generalized weakness bilateral lower extremities) Medications Current Medications Medications Dose Ordered Sig/Shakira Route Start Time Stop Time Status Last Admin Dose Admin Ondansetron HCl 4 mg Q4HP PRN IV 10/12/24 08:45 10/12/24 14:56 4 MG Acetaminophen 650 mg Q6HP PRN PO 10/12/24 08:45 Morphine Sulfate 1 mg Q4HP PRN IV 10/12/24 08:45 10/14/24 05:08 1 MG Cyclobenzaprine HCl 10 mg TID PO 10/12/24 14:00 10/14/24 13:05 10 MG Docusate Sodium 100 mg BID PO 10/12/24 10:00 10/14/24 09:32 100 MG Nitroglycerin 0.4 mg Q5MINP PRN SL 10/12/24 08:45 Morphine Sulfate 2 mg Q30M PRN IV 10/12/24 08:45 Allopurinol 100 mg DAILY PO 10/13/24 10:00 10/14/24 09:32 100 MG Atorvastatin Calcium 40 mg HS PO 10/12/24 22:00 10/13/24 22:27 40 MG Metoprolol Succinate 25 mg DAILY PO 10/13/24 10:00 10/14/24 09:32 25 MG Gabapentin 300 mg BID PO 10/12/24 22:00 10/14/24 09:32 300 MG Valsartan 80 mg DAILY PO 10/13/24 10:00 10/14/24 09:33 80 MG Chlordiazepoxide HCl 25 mg Q4HR PRN PO 10/13/24 14:30 Acetaminophen/ Hydrocodone Bitart 1 tab Q4HPRN PRN PO 10/14/24 06:15 10/14/24 06:33 1 TAB Laboratory Results Laboratory Tests 10/13/24 07:07 Urinalysis Test 10/06/24 09:55 Urine Color Light-yellow (Yellow) Urine Clarity Clear (Clear) Urine pH 6.0 (5.0-9.0) Urine Specific [place] 1.011 (1.001-1.035) Urine Protein 1+ (Negative) H Urine Ketones Negative (Negative) Urine Blood Negative /uL (Negative) Urine Nitrite Negative (Negative) Urine Bilirubin Negative (Negative) Urine Urobilinogen Normal mg/dL (Negative) Urine Leukocyte Esterase Negative /uL (Negative) Urine RBC None seen /hpf (0 - 3) Urine Microscopic WBC < 1 /HPF (0-3) Urine Squamous Epithelial Cells None seen /hpf (<5) Urine Bacteria None seen /hpf (None Seen) Urine Glucose Normal mg/dL (Normal) Assessment/Plan Assessment/Plan Status post lumbar surgery/degenerative joint disease History of SVT Alcoholism/watch for DT Coronary artery disease history of CABG Peripheral artery disease Sleep apnea Hypertension Dyslipidemia Gout Mild anemia Plan: Placement for Rehabilitation Plan discussed with: Patient Date of Service: Oct 14, 2024 Billing Provider: ADAM LINN MD Common Visit Codes: [id number] INP/OBS CARE(MOD) ADAM LINN MD Oct 14, 2024 17:05
[2024-10-14] MEDS: POLYETHYLENE GLYCOL 17 GM PWDR PO ONE (18:54)
[2024-10-15] VITALS (7 sets, daily range): BP systolic 100–150; BP diastolic 59–90; PULSE 64–108; RESP 18–20; TEMP 97.2–99.9; O2SAT 92–98
--- NOTE | 2024-10-15 11:57 | DVHPN2 ---
Progress Note Date Seen: Oct 15, 2024 Has the PT tested + for MRSA If YES, has PT been informed?: No Medical Necessity Reason Pt with a Central, PICC or Fol: No Objective vital signs Vital Sign Date Time Temp Pulse Resp B/P (MAP) Pulse Ox O2 Delivery O2 Flow Rate FiO2 10/15/24 10:02 98 147/88 10/15/24 09:00 98.0 20 92 98.0 10/14/24 20:00 Room Air* 0 21 Total Intake and Output 10/14/24 10/14/24 10/15/24 15:00 23:00 07:00 Intake Total 340 ml 500 ml 600 ml Balance 340 ml 500 ml 600 ml medications Current Medications Medications Dose Ordered Sig/Shakira Route Start Time Stop Time Status Last Admin Dose Admin Ondansetron HCl 4 mg Q4HP PRN IV 10/12/24 08:45 10/12/24 14:56 4 MG Acetaminophen 650 mg Q6HP PRN PO 10/12/24 08:45 Morphine Sulfate 1 mg Q4HP PRN IV 10/12/24 08:45 10/14/24 05:08 1 MG Cyclobenzaprine HCl 10 mg TID PO 10/12/24 14:00 10/15/24 05:31 10 MG Docusate Sodium 100 mg BID PO 10/12/24 10:00 10/15/24 09:58 100 MG Nitroglycerin 0.4 mg Q5MINP PRN SL 10/12/24 08:45 Morphine Sulfate 2 mg Q30M PRN IV 10/12/24 08:45 Allopurinol 100 mg DAILY PO 10/13/24 10:00 10/15/24 09:58 100 MG Atorvastatin Calcium 40 mg HS PO 10/12/24 22:00 10/14/24 21:47 40 MG Metoprolol Succinate 25 mg DAILY PO 10/13/24 10:00 10/15/24 10:02 25 MG Gabapentin 300 mg BID PO 10/12/24 22:00 10/15/24 09:58 300 MG Valsartan 80 mg DAILY PO 10/13/24 10:00 10/15/24 09:58 80 MG Chlordiazepoxide HCl 25 mg Q4HR PRN PO 10/13/24 14:30 Acetaminophen/ Hydrocodone Bitart 1 tab Q4HPRN PRN PO 10/14/24 06:15 10/15/24 09:58 1 TAB laboratory and microbiology Laboratory Tests 10/13/24 07:07 Test 10/13/24 07:07 Range/Units Serum Glucose 115 H 74-106 mg/dL Problem List/Assessment/Plan Problem List/Assessment/Plan Plan Patient is a 74 who came for elective laminectomy. Patient has had daily diff laminectomy at the time of evaluation. Cardiology was involved for cardiac aspects of care. Patient is known to our practice from outside and before. Patient does have history of coronary artery disease and has had CABG before. He does also have history of infrequent SVTs. Not in acute distress. Lying flat in bed. No JVD. Mucosa is pink and wet. No carotid bruit. No goiter. Lungs are clear to auscultation. Cardiac: Regular, no thrill/gallop. Abdomen is soft. Bowel sound is positive. There is no gross mass/hepatomegaly. There is no peripheral edema. Past medical history includes hypertension, hyperlipidemia, prediabetes, obstructive sleep apnea, coronary artery disease, status post CABG, asthma, peripheral artery disease, diverticular disease, degenerative disc disorder, alcoholism, old history of renal cancer and nephrectomy, history of prostate cancer, fatty liver, infrequent SVTs, old history of right ankle tear and also old history of esophageal dilatation. Echocardiogram of July 17, 2024 (performed in the office) revealed ejection fraction of 55-60%, mild left ventricular hypertrophy, mild biatrial enlargement, trace AI/MR/PI, mild TR, mitral annular calcification and right ventricular systolic pressure of less than 35 mm Hg Creatinine: 0.97-0.66 Potassium: 4.4-4.1 Chest x-ray revealed: IMPRESSION: Mild congestive heart failure. EKG reveals sinus rhythm Tele reveals sinus rhythm Patient is a 74-year-old gentleman who came for elective laminectomy. He is post laminectomy. Cardiac-bui, the patient has history of coronary artery disease and has had CABG before. Infrequent SVTs. It is of note the patient does have history of alcohol abuse and its withdrawal should be avoided in the hospital DDD Post laminectomy Peripheral artery disease Coronary artery disease Status post CABG Obstructive sleep apnea Alcohol abuse Cardiac suggestion for management: Managed on telemetry Follow-up electrolytes and kidney function tests and correct abnormalities Continue aspirin DVT prophylaxis Prevent alcohol withdrawal Further evaluation and management depends on the above and clinical course Thank you for consultation A total of 55 minutes was spent reviewing the patient record, examining the patient, making a diagnostic and therapeutic plan, discussing this plan with medical personnel, following up on diagnostic studies and following the patient for clinical stability excluding any and all procedures. At least 50% of this time was spent in direct, [id number] contact. Thank you for allowing me to participate in this patient's care. Further recommendations will depend on patient's clinical course. Please do not hesitate to contact me if you have any questions or concerns. Plan discussed with: Other (nurse) CHRIS BADILLO MD Oct 15, 2024 11:57
--- NOTE | 2024-10-15 14:23 | DVHPN2 ---
Subjective No complaints today Reviewed: Care Plan, H&P, Labs, Medications, Previous Orders, Radiology, Other (Consultants) Changes from previous H/P or p: No Changes Objective Vitals Vital Signs Date Time Temp Pulse Resp B/P (MAP) Pulse Ox O2 Delivery O2 Flow Rate FiO2 10/15/24 10:02 98 147/88 10/15/24 09:00 98.0 20 92 98.0 10/15/24 08:10 Room Air* 0 21 Intake/Output Intake and Output 10/15/24 07:00 Intake Total 1440 ml Balance 1440 ml Intake Oral 1440 ml # Voids 5 General Appearance: Alert, Oriented X3, Cooperative, No acute distress, Other (Hard of hearing) HEENT: Atraumatic Lungs: Clear to auscultation Cardiovascular: Regular rate Extremities: Other (Generalized weakness bilateral lower extremities) Medications Current Medications Medications Dose Ordered Sig/Shakira Route Start Time Stop Time Status Last Admin Dose Admin Ondansetron HCl 4 mg Q4HP PRN IV 10/12/24 08:45 10/12/24 14:56 4 MG Acetaminophen 650 mg Q6HP PRN PO 10/12/24 08:45 Morphine Sulfate 1 mg Q4HP PRN IV 10/12/24 08:45 10/14/24 05:08 1 MG Cyclobenzaprine HCl 10 mg TID PO 10/12/24 14:00 10/15/24 05:31 10 MG Docusate Sodium 100 mg BID PO 10/12/24 10:00 10/15/24 09:58 100 MG Nitroglycerin 0.4 mg Q5MINP PRN SL 10/12/24 08:45 Morphine Sulfate 2 mg Q30M PRN IV 10/12/24 08:45 Allopurinol 100 mg DAILY PO 10/13/24 10:00 10/15/24 09:58 100 MG Atorvastatin Calcium 40 mg HS PO 10/12/24 22:00 10/14/24 21:47 40 MG Metoprolol Succinate 25 mg DAILY PO 10/13/24 10:00 10/15/24 10:02 25 MG Gabapentin 300 mg BID PO 10/12/24 22:00 10/15/24 09:58 300 MG Valsartan 80 mg DAILY PO 10/13/24 10:00 10/15/24 09:58 80 MG Chlordiazepoxide HCl 25 mg Q4HR PRN PO 10/13/24 14:30 Acetaminophen/ Hydrocodone Bitart 1 tab Q4HPRN PRN PO 10/14/24 06:15 10/15/24 09:58 1 TAB Laboratory Results Laboratory Tests 10/13/24 07:07 Urinalysis Test 10/06/24 09:55 Urine Color Light-yellow (Yellow) Urine Clarity Clear (Clear) Urine pH 6.0 (5.0-9.0) Urine Specific [place] 1.011 (1.001-1.035) Urine Protein 1+ (Negative) H Urine Ketones Negative (Negative) Urine Blood Negative /uL (Negative) Urine Nitrite Negative (Negative) Urine Bilirubin Negative (Negative) Urine Urobilinogen Normal mg/dL (Negative) Urine Leukocyte Esterase Negative /uL (Negative) Urine RBC None seen /hpf (0 - 3) Urine Microscopic WBC < 1 /HPF (0-3) Urine Squamous Epithelial Cells None seen /hpf (<5) Urine Bacteria None seen /hpf (None Seen) Urine Glucose Normal mg/dL (Normal) Assessment/Plan Assessment/Plan Status post lumbar surgery/degenerative joint disease History of SVT Alcoholism/watch for DT Coronary artery disease history of CABG Peripheral artery disease Sleep apnea Hypertension Dyslipidemia Gout Mild anemia Plan: Continue current plan of care. Placement for rehabilitation Plan discussed with: Patient My Orders Orders - ADAM LINN MD Procedure Category Date Status Time * [employer] Solution Architect CONS 10/14/24 Transmitted Consult Date of Service: Oct 15, 2024 Billing Provider: ADAM LINN MD Common Visit Codes: [id number] INP/OBS CARE(MOD) ADAM LINN MD Oct 15, 2024 14:23
--- NOTE | 2024-10-15 20:02 | DVHPN2 ---
Progress Note - Surgical Date Seen: Oct 15, 2024 Post op day Post op day: 3 Subjective Patient reports: No new complaints (Patient is progressing slowly we will benefit from acute rehab, no barriers to transfer to acute rehab facility from a spine surgery perspective), Feels better Review of Systems: HEENT:Normal, CVS:Normal, RESPIRATORY:Normal, GI:Normal, :Normal, MSK:Abnormal (Bilateral weakness lower extremities), NEURO:Abnormal ( Leg pain, Foot pain, Muscle pain, Muscle atrophy) Objective Vital signs Vital Sign Date Time Temp Pulse Resp B/P (MAP) Pulse Ox O2 Delivery O2 Flow Rate FiO2 10/15/24 17:00 98.3 75 20 150/81 (104) 96 98.3 10/15/24 08:10 Room Air* 0 21 Total Intake and Output 10/14/24 10/14/24 10/15/24 15:00 23:00 07:00 Intake Total 340 ml 500 ml 600 ml Balance 340 ml 500 ml 600 ml Medications Current Medications Medications Dose Ordered Sig/Shakira Route Start Time Stop Time Status Last Admin Dose Admin Ondansetron HCl 4 mg Q4HP PRN IV 10/12/24 08:45 10/12/24 14:56 4 MG Acetaminophen 650 mg Q6HP PRN PO 10/12/24 08:45 Morphine Sulfate 1 mg Q4HP PRN IV 10/12/24 08:45 10/14/24 05:08 1 MG Cyclobenzaprine HCl 10 mg TID PO 10/12/24 14:00 10/15/24 14:17 10 MG Docusate Sodium 100 mg BID PO 10/12/24 10:00 10/15/24 09:58 100 MG Nitroglycerin 0.4 mg Q5MINP PRN SL 10/12/24 08:45 Morphine Sulfate 2 mg Q30M PRN IV 10/12/24 08:45 Allopurinol 100 mg DAILY PO 10/13/24 10:00 10/15/24 09:58 100 MG Atorvastatin Calcium 40 mg HS PO 10/12/24 22:00 10/14/24 21:47 40 MG Metoprolol Succinate 25 mg DAILY PO 10/13/24 10:00 10/15/24 10:02 25 MG Gabapentin 300 mg BID PO 10/12/24 22:00 10/15/24 09:58 300 MG Valsartan 80 mg DAILY PO 10/13/24 10:00 10/15/24 09:58 80 MG Chlordiazepoxide HCl 25 mg Q4HR PRN PO 10/13/24 14:30 Acetaminophen/ Hydrocodone Bitart 1 tab Q4HPRN PRN PO 10/14/24 06:15 10/15/24 09:58 1 TAB Laboratory Laboratory Tests 10/13/24 07:07 Test 10/13/24 07:07 Range/Units Serum Glucose 115 H 74-106 mg/dL Examination: GENERAL:Normal, HEENT:Normal, NECK:Normal, LUNGS:Normal, CVS:Normal, ABDOMEN:Normal, MSK:Normal (Patient is progressing, he will need PT for conditioning and strength), SKIN:Normal (rima intact), NEURO:Normal (progressing slowly with strength), :Normal Problem List/Assessment/Plan Problems: (1) Muscle spasm of back (2) Postoperative pain after spinal surgery Assessment and Plan POD # 3. Patient is progressing to discharge no barriers to transfer/discharge to a rehabilitation facility per spine surgery. Patient has worked with PT- patient appears that he will be needing acute rehab services due to weakness Dx: Lumbar stenosis, postoperative pain, lumbar muscle spasms -Disposition: -Pending placement -Discharge RX: Recommend muscle relaxers and oral pain medications -Follow up appointment: with Dr Boucher on two weeks postoperatively [phone] [id number] [facility] [address] [place] [id number] -Pain: - P.O. analgesics:Tylenol 650MG (PAIN 1-3) Badger 10/325 mg (PAIN 4-6) - Muscle relaxers scheduled administration. This is a beneficial medications for the incisional pain as it is mostly related to muscle spasms. Flexeril 10 mg TID - Cepacol throat lozenges as needed for sore throat -Antibiotics Operative recommendations: -Postoperative dose:Completed -DVT PPX: -Hold all chemical DVT/ blood thinners for 14 days postoperatively -use mechanical DVT PPX such as SCD's, ambulation -Activity: -Sit at side of bed for meals -Goal: Ambulate independently and safely (may use assistive devices if needed) -Medical Therapy goals: -Afebrile- Patient may develop a expected post operative fever by day 2-3, this may not be accompanied with a elevation in WBC. if fever develops: Acetaminophen for fever. Albuterol nebulizer Tx every 12 hours for 24 hours to facilitate adequate lung expansion and prevent development of atelectasis. -Euglycemic: bloods sugars under 130mmol/L for optimal healing -Normotensive: Avoid events of hypertension. This helps to keep post operative healing intact and avoids destabilization of beneficial hemostatic coagulation. -Lumbar: -If patient is comfortable encouraged the patient to lay on their side to facilitate wound healing -Dressings Take care not to disrupt the RIMA dressing seal. If there is a break in the seal it can be trouble shot with a Tegaderm dressing. -Dressing to Hemovac drains may be changed once the drains have been removed by the provider. -Bowel management: -Colace 100mg bid -Diet: -Clear liquid diet and advance as patient tolerates within dietary limitations ( example: diabetic, Cardiac) -Incentive Spirometer: -10 x hour while awake, RN please educate and observe repeat demonstration, have IS at bedside POD #1 -X-rays: - none indicated at this time -Consults: -Physical Therapy evaluation, treatment recommendations, and discharge recommendations Call with questions Keya Dumas ACNP- Orthopaedic Spine Surgery nurse practitioner For Dr Monster Boucher Patient was examined, chart reviewed, labs evaluated, and diagnostic studies and findings analyzed. Case was discussed with Dr. Devon Boucher who formulated the plan of care. This medical document was created using an electronic medical record system with [employer] dictation system. Although this document has been carefully reviewed, there might still be some phonetic and typographical errors. These areas are purely typographical due to imperfections of the software programs, and do not reflect any compromise in the patient's medical care. Plan discussed with Plan discussed with: Patient Visit Coding Surgery Date of Service if different f: Oct 15, 2024 Billing Provider: MARISOL DUMAS NP Surgery Visit Codes: NOT BILLABLE MARISOL DUMAS NP Oct 15, 2024 20:02
[2024-10-16] VITALS (8 sets, daily range): BP systolic 125–157; BP diastolic 47–93; PULSE 78–101; RESP 17–19; TEMP 97.1–98.2; O2SAT 92–95
[2024-10-16] MEDS: chlordiazePOXIDE HCL 25 MG CAP PO PRN (01:53)
--- NOTE | 2024-10-16 08:17 | DVHPN2 ---
Progress Note - Dictate Date Seen: Oct 16, 2024 Has the PT tested + for MRSA If YES, has PT been informed?: No Medical Necessity Reason Pt with a Central, PICC or Fol: No vital signs Vital Sign Date Time Temp Pulse Resp B/P (MAP) Pulse Ox O2 Delivery O2 Flow Rate FiO2 10/16/24 05:00 98.0 101 18 148/83 (104) 92 98.0 10/15/24 20:00 Room Air* 0 21 Total Intake and Output 10/15/24 10/15/24 10/16/24 15:00 23:00 07:00 Intake Total 100 ml 600 ml 400 ml Balance 100 ml 600 ml 400 ml medications Current Medications Medications Dose Ordered Sig/Shakira Route Start Time Stop Time Status Last Admin Dose Admin Ondansetron HCl 4 mg Q4HP PRN IV 10/12/24 08:45 10/12/24 14:56 4 MG Acetaminophen 650 mg Q6HP PRN PO 10/12/24 08:45 Morphine Sulfate 1 mg Q4HP PRN IV 10/12/24 08:45 10/14/24 05:08 1 MG Cyclobenzaprine HCl 10 mg TID PO 10/12/24 14:00 10/16/24 06:50 10 MG Docusate Sodium 100 mg BID PO 10/12/24 10:00 10/15/24 22:18 100 MG Nitroglycerin 0.4 mg Q5MINP PRN SL 10/12/24 08:45 Morphine Sulfate 2 mg Q30M PRN IV 10/12/24 08:45 Allopurinol 100 mg DAILY PO 10/13/24 10:00 10/15/24 09:58 100 MG Atorvastatin Calcium 40 mg HS PO 10/12/24 22:00 10/15/24 22:18 40 MG Metoprolol Succinate 25 mg DAILY PO 10/13/24 10:00 10/15/24 10:02 25 MG Gabapentin 300 mg BID PO 10/12/24 22:00 10/15/24 22:18 300 MG Valsartan 80 mg DAILY PO 10/13/24 10:00 10/15/24 09:58 80 MG Chlordiazepoxide HCl 25 mg Q4HR PRN PO 10/13/24 14:30 10/16/24 01:53 25 MG Acetaminophen/ Hydrocodone Bitart 1 tab Q4HPRN PRN PO 10/14/24 06:15 10/15/24 09:58 1 TAB laboratory and microbiology Laboratory Tests 10/13/24 07:07 Test 10/13/24 07:07 Range/Units Serum Glucose 115 H 74-106 mg/dL Assessment/Plan Patient is a 74 who came for elective laminectomy. Patient has had daily diff laminectomy at the time of evaluation. Cardiology was involved for cardiac aspects of care. Patient is known to our practice from outside and before. Patient does have history of coronary artery disease and has had CABG before. He does also have history of infrequent SVTs. Not in acute distress. Lying flat in bed. No JVD. Mucosa is pink and wet. No carotid bruit. No goiter. Lungs are clear to auscultation. Cardiac: Regular, no thrill/gallop. Abdomen is soft. Bowel sound is positive. There is no gross mass/hepatomegaly. There is no peripheral edema. Past medical history includes hypertension, hyperlipidemia, prediabetes, obstructive sleep apnea, coronary artery disease, status post CABG, asthma, peripheral artery disease, diverticular disease, degenerative disc disorder, alcoholism, old history of renal cancer and nephrectomy, history of prostate cancer, fatty liver, infrequent SVTs, old history of right ankle tear and also old history of esophageal dilatation. Echocardiogram of July 17, 2024 (performed in the office) revealed ejection fraction of 55-60%, mild left ventricular hypertrophy, mild biatrial enlargement, trace AI/MR/PI, mild TR, mitral annular calcification and right ventricular systolic pressure of less than 35 mm Hg Creatinine: 0.97-0.66 Potassium: 4.4-4.1 Chest x-ray revealed: IMPRESSION: Mild congestive heart failure. EKG reveals sinus rhythm Tele reveals sinus rhythm Echo reported: Left ventricle: Borderline concentric left ventricular hypertrophy was seen. LVEF was 54%. Paradoxical septal motion was seen. Right ventricle is normal-sized with normal systolic function. Both atria were normal-sized. Aortic valve was not well visualized. There was no aortic insufficiency/stenosis. There was trace mitral regurgitation. There was no tricuspid regurgitation. Pulmonary valve was not well visualized. As there was no good tricuspid regurgitation jet, right ventricular systolic pressure could not be estimated. IVC was normal-sized with normal respiratory variation. There was no echocardiographic evidence for pulmonary hypertension. There was no pericardial effusion. Patient is a 74-year-old gentleman who came for elective laminectomy. He is post laminectomy. Cardiac-bui, the patient has history of coronary artery disease and has had CABG before. Infrequent SVTs. It is of note the patient does have history of alcohol abuse and its withdrawal should be avoided in the hospital DDD Post laminectomy Peripheral artery disease Coronary artery disease Status post CABG Obstructive sleep apnea Alcohol abuse Cardiac suggestion for management: Managed on telemetry Follow-up electrolytes and kidney function tests and correct abnormalities Continue aspirin DVT prophylaxis, as per primary team and Orthopaedics Prevent alcohol withdrawal (on chlordiazepoxide) Further evaluation and management depends on the above and clinical course A total of 55 minutes was spent reviewing the patient record, examining the patient, making a diagnostic and therapeutic plan, discussing this plan with medical personnel, following up on diagnostic studies and following the patient for clinical stability excluding any and all procedures. At least 50% of this time was spent in direct, [id number] contact. Thank you for allowing me to participate in this patient's care. Further recommendations will depend on patient's clinical course. Please do not hesitate to contact me if you have any questions or concerns. This medical document was created using electronic medical record system with [employer] computerized dictation system. Although this document has been carefully reviewed, there may still be some phonetic and typographical errors. These areas are purely typographical due to the imperfection of the software programs, and do not reflect any compromise in the patient's medical care. Dietary Evaluation Review Comments: 1) Add 60g CCHO diet order. Limit/avoid added sugar. 2) Collect HbA1c 3) Refer to outpatient RD/[facility] for weight management 4) Follow-up with PT/OT Expected Outcomes/Goals: 1) appetite and labs to improve 2) f/u in 5 days Plan discussed with: Patient, Other (nurse) GADIEL COLIN MD Oct 16, 2024 08:17
--- NOTE | 2024-10-16 11:46 | DVHPN2 ---
Progress Note Date Seen: Oct 16, 2024 Has the PT tested + for MRSA If YES, has PT been informed?: No Medical Necessity Reason Pt with a Central, PICC or Fol: No Subjective Patient reports: No new complaints Review of Systems: HEENT:Normal, CVS:Normal, RESPIRATORY:Normal, GI:Normal, :Normal, MSK:Normal, NEURO:Normal Objective vital signs Vital Sign Date Time Temp Pulse Resp B/P (MAP) Pulse Ox O2 Delivery O2 Flow Rate FiO2 10/16/24 10:41 93 130/93 10/16/24 09:00 98.2 19 93 98.2 10/15/24 20:00 Room Air* 0 21 Total Intake and Output 10/15/24 10/15/24 10/16/24 15:00 23:00 07:00 Intake Total 100 ml 600 ml 400 ml Balance 100 ml 600 ml 400 ml medications Current Medications Medications Dose Ordered Sig/Shakira Route Start Time Stop Time Status Last Admin Dose Admin Ondansetron HCl 4 mg Q4HP PRN IV 10/12/24 08:45 10/12/24 14:56 4 MG Acetaminophen 650 mg Q6HP PRN PO 10/12/24 08:45 Morphine Sulfate 1 mg Q4HP PRN IV 10/12/24 08:45 10/14/24 05:08 1 MG Cyclobenzaprine HCl 10 mg TID PO 10/12/24 14:00 10/16/24 06:50 10 MG Docusate Sodium 100 mg BID PO 10/12/24 10:00 10/16/24 10:40 100 MG Nitroglycerin 0.4 mg Q5MINP PRN SL 10/12/24 08:45 Morphine Sulfate 2 mg Q30M PRN IV 10/12/24 08:45 Allopurinol 100 mg DAILY PO 10/13/24 10:00 10/16/24 10:40 100 MG Atorvastatin Calcium 40 mg HS PO 10/12/24 22:00 10/15/24 22:18 40 MG Metoprolol Succinate 25 mg DAILY PO 10/13/24 10:00 10/16/24 10:41 25 MG Gabapentin 300 mg BID PO 10/12/24 22:00 10/16/24 10:40 300 MG Valsartan 80 mg DAILY PO 10/13/24 10:00 10/15/24 09:58 80 MG Chlordiazepoxide HCl 25 mg Q4HR PRN PO 10/13/24 14:30 10/16/24 10:40 25 MG Acetaminophen/ Hydrocodone Bitart 1 tab Q4HPRN PRN PO 10/14/24 06:15 10/16/24 10:42 1 TAB Examination: GENERAL:Normal, HEENT:Normal, NECK:Normal, LUNGS:Normal, CVS:Normal, ABDOMEN:Normal, MSK:Normal, SKIN:Normal, NEURO:Normal, NEURO:Abnormal (confused), :Normal laboratory and microbiology Laboratory Tests 10/13/24 07:07 Test 10/13/24 07:07 Range/Units Serum Glucose 115 H 74-106 mg/dL Problem List/Assessment/Plan Problem List/Assessment/Plan * svt: seen by dr Vann. * Coronary artery disease, status post coronary artery bypass graft. An echocardiogram will be obtained. * Hypertension. * Hyperlipidemia. * Gout. * Alcohol use/abuse with withdrawal: librium, thiamine * h/o renal cancer/nephrectomy * h/o prostate cancer * Status post lumbar spine surgery for degenerative joint disease of the spine, for which she will be placed on pain medication and receive physical therapy. advance care planning- full code- time spent 19 mins Plan discussed with: Patient My Orders My Orders Orders - CHIKIS VOGEL MD Procedure Category Date Status Time D/C Sitter ORDERS 10/16/24 Transmitted 11:40 * Bioinformatics Software Engineer CONS 10/16/24 Transmitted Consult Thiamine Inj PHA 10/16/24 Transmitted 11:45 Thiamine Inj PHA 10/17/24 Transmitted 10:00 Complete Blood Count LAB 10/17/24 Verified 06:00 Comprehensive LAB 10/17/24 Verified Metabolic Panel 06:00 Magnesium LAB 10/17/24 Verified 05:00 Dietary Evaluation Review Comments: 1) Add 60g CCHO diet order. Limit/avoid added sugar. 2) Collect HbA1c 3) Refer to outpatient RD/[facility] for weight management 4) Follow-up with PT/OT Expected Outcomes/Goals: 1) appetite and labs to improve 2) f/u in 5 days Date of Service: Oct 16, 2024 Billing Provider: CHIKIS VOGEL MD Common Visit Codes: [id number] INP/OBS CARE(HIGH) Secondary Visit Codes: [id number] CARE PLAN 30 MINUTES CHIKIS VOGEL MD Oct 16, 2024 11:46
[2024-10-16] MEDS: THIAMINE 100mg/ml INJ (200mg/2ml VIAL) IV ONE (15:44)
[2024-10-16] MEDS: ASPirin-EC 81 mg tab PO ONE (19:06)
[2024-10-17 06:54] LABS: Basophils # (auto) 0.1 10 ^3/uL (0-0.2); Basophils % (auto) 0.7 % (0.0-2.0); Eosinophils # (auto) 0.3 10 ^3/uL (0-0.8); Eosinophils % (auto) 3.5 % (0.0-7.0); Hematocrit 36.2 % (41.0-53.0); Lymphocytes # (auto) 1.8 10 ^3/uL (0.4-5.4); Lymphocytes % (auto) 24.1 % (10.0-50.0); Mean Corpuscular Hemoglobin 36.1 pg (28.0-32.0); Mean Corpuscular Hgb Conc. 35.9 g/dL (32.0-36.0); Mean Corpuscular Volume 100.7 fL (80.0-100.0); Monocytes # (auto) 1.2 10 ^3/uL (0-1.3); Monocytes % (auto) 15.7 % (0.0-12.0); Neutrophils # (auto) 4.2 10 ^3/uL (1.6-8.6); Platelet Count (auto) 213 10^3/uL (140-450); Red Cell Distribution Width 12.7 % (11.8-14.3); White Blood Cell 7.5 10^3/uL (4.4-10.8)
[2024-10-17 06:55] LABS: Alanine Aminotransferase 26 U/L (7-40); Albumin 4.6 g/dL (3.2-4.8); Alkaline Phosphatase 69 U/L (46-116); Anion Gap 8 (5-15); Blood Urea Nitrogen 16 mg/dL (9-23); Calcium 10.1 mg/dL (8.7-10.4); Carbon Dioxide 27 mmol/L (20-31); Magnesium 1.8 mg/dL (1.6-2.6); Potassium 4.5 mmol/L (3.5-5.1); Total Protein 7.1 g/dL (5.7-8.2)
--- NOTE | 2024-10-17 07:00 | DVHPN2 ---
Progress Note - Dictate Date Seen: Oct 17, 2024 Has the PT tested + for MRSA If YES, has PT been informed?: No Medical Necessity Reason Pt with a Central, PICC or Fol: No vital signs Vital Sign Date Time Temp Pulse Resp B/P (MAP) Pulse Ox O2 Delivery O2 Flow Rate FiO2 10/16/24 21:00 98.0 78 17 127/75 (92) 93 98.0 10/16/24 20:00 Room Air* 0 21 Total Intake and Output 10/16/24 10/16/24 10/17/24 15:00 23:00 07:00 Intake Total 1510 ml 900 ml Balance 1510 ml 900 ml medications Current Medications Medications Dose Ordered Sig/Shakira Route Start Time Stop Time Status Last Admin Dose Admin Ondansetron HCl 4 mg Q4HP PRN IV 10/12/24 08:45 10/12/24 14:56 4 MG Acetaminophen 650 mg Q6HP PRN PO 10/12/24 08:45 Morphine Sulfate 1 mg Q4HP PRN IV 10/12/24 08:45 10/14/24 05:08 1 MG Cyclobenzaprine HCl 10 mg TID PO 10/12/24 14:00 10/17/24 06:15 10 MG Docusate Sodium 100 mg BID PO 10/12/24 10:00 10/16/24 21:38 100 MG Nitroglycerin 0.4 mg Q5MINP PRN SL 10/12/24 08:45 Morphine Sulfate 2 mg Q30M PRN IV 10/12/24 08:45 Allopurinol 100 mg DAILY PO 10/13/24 10:00 10/16/24 10:40 100 MG Atorvastatin Calcium 40 mg HS PO 10/12/24 22:00 10/16/24 21:38 40 MG Metoprolol Succinate 25 mg DAILY PO 10/13/24 10:00 10/16/24 10:41 25 MG Gabapentin 300 mg BID PO 10/12/24 22:00 10/16/24 21:38 300 MG Valsartan 80 mg DAILY PO 10/13/24 10:00 10/16/24 13:53 80 MG Chlordiazepoxide HCl 25 mg Q4HR PRN PO 10/13/24 14:30 10/17/24 06:16 25 MG Acetaminophen/ Hydrocodone Bitart 1 tab Q4HPRN PRN PO 10/14/24 06:15 10/16/24 20:49 1 TAB Thiamine HCl 100 mg DAILY IV 10/17/24 10:00 Aspirin 81 mg DAILY PO 10/17/24 10:00 laboratory and microbiology Laboratory Tests 10/17/24 05:59 Test 10/17/24 05:59 Range/Units Serum Glucose Pending Assessment/Plan Patient is a 74 who came for elective laminectomy. Patient has had daily diff laminectomy at the time of evaluation. Cardiology was involved for cardiac aspects of care. Patient is known to our practice from outside and before. Patient does have history of coronary artery disease and has had CABG before. He does also have history of infrequent SVTs. Not in acute distress. Lying flat in bed. No JVD. Mucosa is pink and wet. No carotid bruit. No goiter. Lungs are clear to auscultation. Cardiac: Regular, no thrill/gallop. Abdomen is soft. Bowel sound is positive. There is no gross mass/hepatomegaly. There is no peripheral edema. Past medical history includes hypertension, hyperlipidemia, prediabetes, obstructive sleep apnea, coronary artery disease, status post CABG, asthma, peripheral artery disease, diverticular disease, degenerative disc disorder, alcoholism, old history of renal cancer and nephrectomy, history of prostate cancer, fatty liver, infrequent SVTs, old history of right ankle tear and also old history of esophageal dilatation. Echocardiogram of July 17, 2024 (performed in the office) revealed ejection fraction of 55-60%, mild left ventricular hypertrophy, mild biatrial enlargement, trace AI/MR/PI, mild TR, mitral annular calcification and right ventricular systolic pressure of less than 35 mm Hg Creatinine: 0.97 - 0.68 - 0.83 - 0.94 Potassium: 4.4 - 4.1 - 4.4 - 4.5 Chest x-ray revealed: IMPRESSION: Mild congestive heart failure. EKG reveals sinus rhythm Tele reveals sinus rhythm Echo reported: Left ventricle: Borderline concentric left ventricular hypertrophy was seen. LVEF was 54%. Paradoxical septal motion was seen. Right ventricle is normal-sized with normal systolic function. Both atria were normal-sized. Aortic valve was not well visualized. There was no aortic insufficiency/stenosis. There was trace mitral regurgitation. There was no tricuspid regurgitation. Pulmonary valve was not well visualized. As there was no good tricuspid regurgitation jet, right ventricular systolic pressure could not be estimated. IVC was normal-sized with normal respiratory variation. There was no echocardiographic evidence for pulmonary hypertension. There was no pericardial effusion. Patient is a 74-year-old gentleman who came for elective laminectomy. He is post laminectomy. Cardiac-bui, the patient has history of coronary artery disease and has had CABG before. Infrequent SVTs. It is of note the patient does have history of alcohol abuse and its withdrawal should be avoided in the hospital DDD Post laminectomy Peripheral artery disease Coronary artery disease Status post CABG Obstructive sleep apnea Alcohol abuse Cardiac suggestion for management: Managed on telemetry Follow-up electrolytes and kidney function tests and correct abnormalities Continue aspirin DVT prophylaxis, as per primary team and Orthopaedics Prevent alcohol withdrawal (on chlordiazepoxide, folic acid and thiamine) Cardiac bui, stable Further evaluation and management depends on the above and clinical course A total of 55 minutes was spent reviewing the patient record, examining the patient, making a diagnostic and therapeutic plan, discussing this plan with medical personnel, following up on diagnostic studies and following the patient for clinical stability excluding any and all procedures. At least 50% of this time was spent in direct, [id number] contact. Thank you for allowing me to participate in this patient's care. Further recommendations will depend on patient's clinical course. Please do not hesitate to contact me if you have any questions or concerns. This medical document was created using electronic medical record system with [employer] computerized dictation system. Although this document has been carefully reviewed, there may still be some phonetic and typographical errors. These areas are purely typographical due to the imperfection of the software programs, and do not reflect any compromise in the patient's medical care. Dietary Evaluation Review Comments: 1) Add 60g CCHO diet order. Limit/avoid added sugar. 2) Collect HbA1c 3) Refer to outpatient RD/[facility] for weight management 4) Follow-up with PT/OT Expected Outcomes/Goals: 1) appetite and labs to improve 2) f/u in 5 days Plan discussed with: Other (nurse) GADIEL COLIN MD Oct 17, 2024 07:00
[2024-10-17 07:10] LABS: Aspartate Aminotransferase 51 U/L (13-40); Bilirubin, Total 2.2 mg/dL (0.2-1.0); Chloride 94 mmol/L (98-107); Glucose 122 mg/dL (74-106); Sodium 129 mmol/L (136-145)
[2024-10-17 08:55] VITALS: BP 122/79; PULSE 106; O2SAT 94
--- NOTE | 2024-10-17 10:16 | DVHPN2 ---
Progress Note - Surgical Date Seen: Oct 17, 2024 Post op day Post op day: 6 Subjective Patient reports: Feels better Review of Systems: HEENT:Normal, CVS:Normal, RESPIRATORY:Normal, GI:Normal, :Normal, NEURO:Normal Objective Vital signs Vital Sign Date Time Temp Pulse Resp B/P (MAP) Pulse Ox O2 Delivery O2 Flow Rate FiO2 10/17/24 08:55 106 122/79 (93) 94 10/16/24 21:00 98.0 17 98.0 10/16/24 20:00 Room Air* 0 21 Total Intake and Output 10/16/24 10/16/24 10/17/24 15:00 23:00 07:00 Intake Total 1510 ml 900 ml Balance 1510 ml 900 ml Medications Current Medications Medications Dose Ordered Sig/Shakira Route Start Time Stop Time Status Last Admin Dose Admin Ondansetron HCl 4 mg Q4HP PRN IV 10/12/24 08:45 10/12/24 14:56 4 MG Acetaminophen 650 mg Q6HP PRN PO 10/12/24 08:45 Morphine Sulfate 1 mg Q4HP PRN IV 10/12/24 08:45 10/14/24 05:08 1 MG Cyclobenzaprine HCl 10 mg TID PO 10/12/24 14:00 10/17/24 06:15 10 MG Docusate Sodium 100 mg BID PO 10/12/24 10:00 10/16/24 21:38 100 MG Nitroglycerin 0.4 mg Q5MINP PRN SL 10/12/24 08:45 Morphine Sulfate 2 mg Q30M PRN IV 10/12/24 08:45 Allopurinol 100 mg DAILY PO 10/13/24 10:00 10/16/24 10:40 100 MG Atorvastatin Calcium 40 mg HS PO 10/12/24 22:00 10/16/24 21:38 40 MG Metoprolol Succinate 25 mg DAILY PO 10/13/24 10:00 10/16/24 10:41 25 MG Gabapentin 300 mg BID PO 10/12/24 22:00 10/16/24 21:38 300 MG Valsartan 80 mg DAILY PO 10/13/24 10:00 10/16/24 13:53 80 MG Chlordiazepoxide HCl 25 mg Q4HR PRN PO 10/13/24 14:30 10/17/24 06:16 25 MG Acetaminophen/ Hydrocodone Bitart 1 tab Q4HPRN PRN PO 10/14/24 06:15 10/16/24 20:49 1 TAB Thiamine HCl 100 mg DAILY IV 10/17/24 10:00 Aspirin 81 mg DAILY PO 10/17/24 10:00 Folic Acid 1 mg DAILY PO 10/17/24 10:00 Laboratory Laboratory Tests 10/17/24 05:59 Test 10/17/24 05:59 Range/Units Serum Glucose 122 H 74-106 mg/dL Examination: GENERAL:Normal, HEENT:Normal, NECK:Normal, CVS:Normal, ABDOMEN:Normal, MSK:Normal, MSK:Abnormal, NEURO:Normal, :Normal Problem List/Assessment/Plan Assessment and Plan he is ready to d/c from hospital. incision covered and dry no new focal neuro deficits SNF would be the correct option My Orders My Orders Orders - ALVARO CULVER MD Procedure Category Date Status Time Aspirin Enteric PHA 10/17/24 In Process Coated Tablet 10:00 Plan discussed with Plan discussed with: Patient Visit Coding Surgery Date of Service if different f: Oct 17, 2024 Billing Provider: ALVARO CULVER MD Surgery Visit Codes: NOT BILLABLE ALVARO CULVER MD Oct 17, 2024 10:16
--- NOTE | 2024-10-17 10:25 | DVHDS2 ---
Discharge Summary Date of Admission Oct 12, 2024 at 08:37 Date of Discharge: Oct 17, 2024 Labs/Diagnostic Data: Laboratory Results Test 10/17/24 05:59 10/06/24 09:55 White Blood Count 7.5 10^3/uL (4.4-10.8) Red Blood Count 3.60 10^6/uL (4.5-5.90) Hemoglobin 13.0 g/dL (13.5-17.5) Hematocrit 36.2 % (41.0-53.0) Mean Corpuscular Volume 100.7 fL (80.0-100.0) Mean Corpuscular Hemoglobin 36.1 pg (28.0-32.0) Mean Corpuscular Hemoglobin Concent 35.9 g/dL (32.0-36.0) Red Cell Distribution Width 12.7 % (11.8-14.3) Platelet Count 213 10^3/uL (140-450) Mean Platelet Volume 7.0 fL (6.9-10.8) Neutrophils (%) (Auto) 56.0 % (37.0-80.0) Lymphocytes (%) (Auto) 24.1 % (10.0-50.0) Monocytes (%) (Auto) 15.7 % (0.0-12.0) Eosinophils (%) (Auto) 3.5 % (0.0-7.0) Basophils (%) (Auto) 0.7 % (0.0-2.0) Neutrophils # (Auto) 4.2 10 ^3/uL (1.6-8.6) Lymphocytes # (Auto) 1.8 10 ^3/uL (0.4-5.4) Monocytes # (Auto) 1.2 10 ^3/uL (0-1.3) Eosinophils # (Auto) 0.3 10 ^3/uL (0-0.8) Basophils # (Auto) 0.1 10 ^3/uL (0-0.2) Nucleated Red Blood Cells 0.0 % Sodium Level 129 mmol/L (136-145) Potassium Level 4.5 mmol/L (3.5-5.1) Chloride Level 94 mmol/L (98-107) Carbon Dioxide Level 27 mmol/L (20-31) Anion Gap 8 (5-15) Blood Urea Nitrogen 16 mg/dL (9-23) Creatinine 0.94 mg/dL (0.700-1.30) Glomerular Filtration Rate Calc 84 mL/min (>90) BUN/Creatinine Ratio 17.0 (10.0-20.0) Serum Glucose 122 mg/dL (74-106) Calcium Level 10.1 mg/dL (8.7-10.4) Magnesium Level 1.8 mg/dL (1.6-2.6) Total Bilirubin 2.2 mg/dL (0.2-1.0) Aspartate Amino Transferase (AST) 51 U/L (13-40) Alanine Aminotransferase (ALT) 26 U/L (7-40) Alkaline Phosphatase 69 U/L (46-116) Total Protein 7.1 g/dL (5.7-8.2) Albumin 4.6 g/dL (3.2-4.8) Prothrombin Time 10.3 sec (9.3-11.8) Prothrombin Time INR 0.97 (0.9-1.15) Activated Partial Thromboplast Time 26.5 SEC (24.5-34.5) Urine Color Light-yellow (Yellow) Urine Clarity Clear (Clear) Urine pH 6.0 (5.0-9.0) Urine Specific [place] 1.011 (1.001-1.035) Urine Protein 1+ (Negative) Urine Ketones Negative (Negative) Urine Blood Negative /uL (Negative) Urine Nitrite Negative (Negative) Urine Bilirubin Negative (Negative) Urine Urobilinogen Normal mg/dL (Negative) Urine Leukocyte Esterase Negative /uL (Negative) Urine RBC None seen /hpf (0 - 3) Urine Microscopic WBC < 1 /HPF (0-3) Urine Squamous Epithelial Cells None seen /hpf (<5) Urine Bacteria None seen /hpf (None Seen) Urine Glucose Normal mg/dL (Normal) Other Laboratory Tests 10/17/24 05:59 Brief Hx & Hospital Course: see dictated note Condition at Discharge: Fair Final Diagnosis/Problems List lumber surgery Discharge Disposition: Long Term Facility Discharge Instruct/Medications Diet: Cardiac 2g Na,low cholest Activity: No Restrictions, As Tolerated Follow Up/Referral: fu with dr Boucher, pcp Medications: per oct Discharge Statement: "Patient was advised to return to the ER or call 911 if any headaches, dizziness, shortness of breath, chest pain, abdominal pain, bleeding, fevers, or worsening of medical condition. Patient was counseled about treatment plan, medications, possible side effects, patientverbalized understanding. All questions were answered to the best of my ability. This discharge took greater then 30 minutes in planning, reviewing documentation, counseling the patient, and discussing with other team members." ASSESSMENT ASSESSMENT Assessment lumber surgery Date of Service: Oct 17, 2024 Billing Provider: CHIKIS VOGEL MD Common Visit Codes: 69821-GYA/OBS DISCH DAY >30min CHIKIS VOGEL MD Oct 17, 2024 10:25
--- NOTE | 2024-10-17 10:33 | DVHDS ---
DATE OF DISCHARGE: 10/17/2024 HISTORY OF PRESENT ILLNESS: The patient is a 74-year-old gentleman who was admitted after he underwent surgery on the lumbar spine for DJD of the spine. He has history of coronary artery disease, status post CABG, hypertension, hyperlipidemia, gout and history of SVT. He also has history of prostate cancer and renal cancer, status post nephrectomy. HOSPITAL COURSE: The patient was seen by Dr. Boucher. His hemoglobin at time of discharge is 13. The patient was seen in the Cardiology consult by Dr. Vann. The patient's echocardiogram showed ejection fraction of 54%. The patient will now be [facility], with medications as per medication reconciliation. FINAL DIAGNOSES: Therefore, * Supraventricular tachycardia. * Coronary artery disease, status post coronary artery bypass graft. * Hypertension. * Hyperlipidemia. * Gout. * Alcohol abuse, with alcohol withdrawal symptoms with encephalopathy. * History of renal cancer, with nephrectomy. * History of prostate cancer. * Status post lumbar spine surgery for degenerative joint disease of the spine. Time spent in discharge planning and review of plan with institutional nutrition consultant and nursing was 39 minutes. MD MIGUELITO Wiley/LIONEL TID: [id number] RECEIPT: [id number]
[2024-10-17] MEDS: ASPirin-EC 81 mg tab PO SCH (11:03)
[2024-10-17 12:45] VITALS: BP 157/79; PULSE 93; TEMP 36.7
[2024-10-17 13:05] VITALS: BP 120/75; PULSE 96; RESP 18; O2SAT 96
[2024-10-17] MEDS: FOLIC ACID 1 MG TAB PO SCH (15:44)
[2024-10-17] MEDS: THIAMINE 100mg/ml INJ (200mg/2ml VIAL) IV SCH (15:45)
== END 2024-10-17 16:10 | DRG 451 ==
LOC: SUR 06:07 → OVERFLOW 08:37 → TELE-EAST 13:52 → TELE-CENTR 10-15 23:10 → CENTRAL 10-16 02:30 → TELE-CENTR 10-16 02:37
PROVIDERS: ADMIT Internal Medicine; ATTEND Internal Medicine
PROC: 01NR0ZZ Release Sacral Nerve, Open Approach (ICD-10-PCS; 2024-10-12)
PROC: 01NB0ZZ Release Lumbar Nerve, Open Approach (ICD-10-PCS; 2024-10-12)
PROC: 00NY0ZZ Release Lumbar Spinal Cord, Open Approach (ICD-10-PCS; 2024-10-12)
PROC: 4A11X4G Monitoring of Peripheral Nervous Electrical Activity, Intraoperative, External Approach (ICD-10-PCS; 2024-10-12)
PROC: 0SG30AJ Fusion of Lumbosacral Joint with Interbody Fusion Device, Posterior Approach, Anterior Column, Open Approach (ICD-10-PCS; principal; 2024-10-12 07:53)
DX: M48.062 Spinal stenosis, lumbar region with neurogenic claudication (principal); F10.139 Alcohol abuse with withdrawal, unspecified; I47.10 Supraventricular tachycardia, unspecified; I10 Essential (primary) hypertension; M10.9 Gout, unspecified; E78.5 Hyperlipidemia, unspecified; D64.9 Anemia, unspecified; G47.33 Obstructive sleep apnea (adult) (pediatric); Y90.9 Presence of alcohol in blood, level not specified; G31.2 Degeneration of nervous system due to alcohol; I73.9 Peripheral vascular disease, unspecified; M51.27 Other intervertebral disc displacement, lumbosacral region; I25.10 Atherosclerotic heart disease of native coronary artery without angina pectoris; K76.0 Fatty (change of) liver, not elsewhere classified; R73.03 Prediabetes; M47.816 Spondylosis without myelopathy or radiculopathy, lumbar region; Z79.82 Long term (current) use of aspirin; Z79.1 Long term (current) use of non-steroidal anti-inflammatories (NSAID); Z79.899 Other long term (current) drug therapy; Z82.3 Family history of stroke; Z95.1 Presence of aortocoronary bypass graft; Z87.891 Personal history of nicotine dependence; Z85.46 Personal history of malignant neoplasm of prostate; Z90.5 Acquired absence of kidney; Z85.528 Personal history of other malignant neoplasm of kidney
CPT/HCPCS: 36415; 71045; 72110; 76000; 80048; 80053; 81001; 83735; 85025; 85610; 85730; 86850; 86900; 86901; 93005; 93306; 97110; 97116; 97163; 97530; G0378; J0330; J2405; J2704